=== PATIENT | female | born 1940 | race American Indian/Alaskan Native ===

== ENCOUNTER 2016-09-10 15:55 | Inpatient (IN) | payer MEDICARE ==
[2016-09-10 15:55] VITALS: BMI 29.0
[2016-09-10] MEDS ORDERED: Nitroglycerin 2% Ointment Foilpak UD TOP STA (17:24)
[2016-09-10 17:32] LABS: BASO # 0.1 K/uL (0.0-0.2); EOS # 0.6 K/uL (0.0-0.7); EOS % 9.2 % (0.0-4.0); HEMOGLOBIN 11.4 g/dL (11.0-16.0); LYMPH # 1.1 K/uL (1.0-4.3); LYMPH % 16.2 % (20.0-40.0); MEAN CELL VOLUME 82.7 fL (81.0-99.0); MEAN CORPUSCULAR HEMOGLOBIN 26.7 pg (27.0-31.0); MEAN CORPUSCULAR HGB CONC 32.3 g/dL (33.0-37.0); MEAN PLATELET VOLUME 10.2 fL (7.2-11.7); MONO # 0.5 K/uL (0.0-0.8); NEUT # 4.4 K/uL (1.8-7.0); NEUT % 65.6 % (50.0-75.0); RBC 4.25 Mil/uL (3.80-5.20); RED CELL DISTRIBUTION WIDTH 15.3 % (11.5-14.5); WHITE BLOOD COUNT 6.7 K/uL (4.8-10.8)
[2016-09-10 17:42] LABS: PROTHROMBIN TIME 11.2 SECONDS (9.7-12.2)
[2016-09-10] MEDS ORDERED: Nitroglycerin 2% Ointment Foilpak UD TOP ONE (17:46)
[2016-09-10 17:53] LABS: SQUAMOUS EPITHIAL 2 /hpf (0-5); URINE BILIRUBIN NEGATIVE (NEGATIVE); URINE BLOOD NEGATIVE (NEGATIVE); URINE CLARITY Clear (Clear); URINE COLOR Colorless (YELLOW); URINE GLUCOSE (UA) 1+ mg/dL (Normal); URINE LEUKOCYTE ESTERASE NEG Leu/uL (Negative); URINE NITRATE NEGATIVE (NEGATIVE); URINE PROTEIN NEGATIVE (NEGATIVE); URINE UROBILINOGEN NORMAL mg/dL (0.2-1.0)
[2016-09-10] MEDS: niCARdipine IV 25 MG in Sodium Chloride 0.9% 240 ML IV SCH ×2 (18:22→20:49)
--- NOTE | 2016-09-10 18:26 | CT ---
PROCEDURE: CT HEAD WITHOUT CONTRAST. HISTORY: hypertensive, ? bleed COMPARISON: None available. TECHNIQUE: Axial computed tomography images were obtained through the head/brain without intravenous contrast. Radiation dose: Total exam DLP = 1160.54 mGy-cm. This CT exam was performed using one or more of the following dose reduction techniques: Automated exposure control, adjustment of the mA and/or kV according to patient size, and/or use of iterative reconstruction technique. FINDINGS: HEMORRHAGE: No intracranial hemorrhage. BRAIN: Diffuse atrophy with prominence of the ventricles and sulci noted. No mass effect or edema. Scattered periventricular and subcortical white matter hypodensities, which are nonspecific, but often seen with chronic microvascular ischemic disease. Patchy opacity within the right basal ganglia may reflect ischemic change, age indeterminate.Scattered periventricular and subcortical white matter hypodensities, which are nonspecific, but often seen with chronic microvascular ischemic disease. VENTRICLES: No hydrocephalus. CALVARIUM: Unremarkable. PARANASAL SINUSES: Unremarkable as visualized. No significant inflammatory changes. MASTOID AIR CELLS: Unremarkable as visualized. No inflammatory changes. OTHER FINDINGS: None. IMPRESSION: Generalized atrophy. Nonspecific white matter changes. Patchy opacity within the right basal ganglia may reflect ischemic change, age indeterminate. Please note that MRI with diffusion imaging is more sensitive in the detection of acute ischemic event.
--- NOTE | 2016-09-10 18:32 | RAD ---
HISTORY: adm COMPARISON: Chest x-ray performed 02/15/14 TECHNIQUE: Chest, one view. FINDINGS: Examination limited by habitus. LUNGS: Trace bilateral pleural effusions. Bibasilar atelectasis. No definite pneumothorax. Please note that chest x-ray has limited sensitivity for the detection of pulmonary masses. CARDIOVASCULAR: Cardiomegaly. OSSEOUS STRUCTURES: Degenerative changes of the spine. VISUALIZED UPPER ABDOMEN: Unremarkable. OTHER FINDINGS: None. IMPRESSION: Trace bilateral pleural effusions. Bibasilar atelectasis. Cardiomegaly.
--- NOTE | 2016-09-10 18:53 | C.PDOC ---
History Of Present Illness Nickie Cheema, a 76 year old female, who has a past medical history of diabetes presents to the emergency department complaining of a headache. The patient has poorly controlled blood pressure and is non compliant with her medication. Time Seen by Provider: 09/10/16 17:19 Chief Complaint (Nursing): GI Problem History Per: Patient History/Exam Limitations: no limitations Current Symptoms Are (Timing): Still Present Associated Symptoms: Headache Past Medical History Reviewed: Historical Data, Nursing Documentation, Vital Signs Vital Signs: Last Vital Signs Temp 97.3 F L 09/10/16 16:37 Pulse 54 L 09/10/16 16:37 Resp 18 09/10/16 16:37 BP 169/93 H 09/10/16 21:23 Pulse Ox 96 09/10/16 18:53 - Medical History PMH: Arthritis, Diabetes, HTN, Hypercholesterolemia, Hypothyroidism Denies: Atrial Fibrillation, Cardia Arrhythmia, CHF, Chronic Kidney Disease Family History: States: [place], CAD - Social History Hx Tobacco Use: No Hx Alcohol Use: No Hx Substance Use: No - Immunization History Hx Tetanus Toxoid Vaccination: No Hx Influenza Vaccination: No Hx Pneumococcal Vaccination: No Review Of Systems Except As Marked, All Systems Reviewed And Found Negative. Constitutional: Positive for: Weight loss (positive weight loss in past month) Neurological: Positive for: Headache Physical Exam - Physical Exam Appears: Non-toxic (Obese), No Acute Distress Skin: Normal Color, Warm, Dry Head: Atraumatic, Normacephalic Eye(s): bilateral: Normal Inspection, PERRL, EOMI Ear(s): Bilateral: Normal Nose: Normal Oral Mucosa: Moist Tongue: Normal Appearing Lips: Normal Appearing Teeth: Normal Dentition Gingiva: Normal Appearing Throat: Normal Neck: Normal, Normal ROM, Supple Chest: No Deformity, No Tenderness Cardiovascular: Rhythm Regular Respiratory: Normal Breath Sounds, No Wheezing Gastrointestinal/Abdominal: Normal Exam, Bowel Sounds, Soft, No Tenderness, No Guarding, No Rebound Extremity: Normal ROM, No Tenderness, No Pedal Edema, No Deformity, No Swelling , Other (Mild lower extremity edema.) Neurological/Psych: Oriented x3, Normal Speech, Normal Cognition, Other (Mild headache pain) ED Course And Treatment - Laboratory Results Result Diagrams: 09/10/16 17:27 09/10/16 19:12 Lab Interpretation: Normal (ua neg.) ECG: Interpreted By Me ECG Rhythm: Sinus Rhythm ECG Interpretation: Normal Rate From EC O2 Sat by Pulse Oximetry: 96 (RA) Pulse Ox Interpretation: Normal - Radiology CXR: Interpreted by Me CXR Interpretation: Yes: No Acute Disease Progress Note: agustin mir Reevaluation Time: 18:51 Reassessment Condition: Improved - Physician Consult Information Outcome Of Conversation: 1899: d/w Dr. Wei- PMD, ok to Tele obs. Medical Decision Making Medical Decision Making: uncontrolled HTN, ? poor med compliance, pipere esperanza to control BP, Obs with vomiting due to unable to trial PO meds prior to d/c. Initial Plan: * CT head w/o Contrast * EKG * Comp Metabolic Panel * CMP * Hemoglobin A1C * Lipid Panel * Troponin * CBC * Partial thromboplastin * Prothrombin Time * CXR * Catapres * Lasix 40mg IVP * Nitro-bid 2% 1ea TOP * Reevaluation Scribe Attestation Documented by Sanjuana Garza acting as a scribe fro Adan Ashley MD. Provider Attestation All medical record entries made by the scribe were at my direction and personally dictated by me. I have reviewed the chart and agree that the record accurately reflects my personal performance, history, physical exam, medical decision making, and the department course for this patient. Ihave also personally directed, reviewed, and agree with the discharge instructions and disposition. Disposition Doctor Will See Patient In The: Hospital Counseled Patient/Family Regarding: Studies Performed, Diagnosis - Disposition Disposition: HOSPITALIZED Disposition Time: 18:52 Condition: GOOD - Clinical Impression Clinical Impression: Uncontrolled hypertension, Vomiting
[2016-09-10] MEDS ORDERED: Iohexol 240 (50 ml) ONE (19:15)
[2016-09-10] MEDS ORDERED: Sodium Chloride 0.9% 1,000 ML ONE (19:15)
[2016-09-10 19:33] LABS: ALBUMIN 4.3 g/dL (3.5-5.0)
[2016-09-10 19:36] LABS: ALB/GLOB RATIO 1.1 (1.0-2.1)
[2016-09-10 19:37] LABS: CALCIUM 9.6 mg/dl (8.6-10.4)
[2016-09-10 19:48] LABS: TROPONIN I 0.015 ng/mL (0.00-0.120)
--- NOTE | 2016-09-10 20:46 | CP.PCM.CON ---
History of Present Illness - History of Present Illness History of Present Illness: CCM 76 yo black female with hx HTN /DM /HLD/arthritis/Hypothyroidism setn from PMD b /o not feeling well. Pt ate hamburger at [employer] then 15 min later had nausea and vomiting.+ feels weak and dizzy. Had leg swelling noted today. denied chest pain /sob /fever cough /BELLO /diarrhea /visual change. Found with BP 217/91 in ED and started on Cardene. Pt feeling back to baseline when seen in ED. BP was 119 systolic then re-checked at 167/72.Pt claims her BP is always high. ROS- as noted All- NKDA Social- no tob/ etoh/ drugs Meds- reviewed FH- Unknown PE T- P-72 R-16 Bp-167/72 Perrl Neck- no jvd Lungs- bilat bs hearwt-rr aBd- benign eXt- bilat Leg edema Neuro- motor and sensory intact Labs, EKG ,[id number]-lutiddrv CT Brain- poss. ischemic area of BG, age undetermined A&P Hypertenisve Emergency- improved BRUCE s/p vomiting DM HLD Hypothyroidism Arthritis would give clonidine PO now and taper off drip cont home BP meds cont NTP Rx lasix If pt has ischemic stroke would avoid tight BP control with drip antiemetics PRN Ok for Telemetry if off Cardene f/u renal fx ECHO d/w ED staff re-consult prn Past Patient History - Infectious Disease Hx of Infectious Diseases: None - Tetanus Immunizations Tetanus Immunization: Refused - Past Medical History & Family History Past Medical History?: Yes - Past Social History Smoking Status: Former Smoker - CARDIAC Hx Atrial Fibrillation: No Hx Cardia Arrhythmia: No Hx Congestive Heart Failure: No Hx Hypercholesterolemia: Yes Hx Hypertension: Yes - PULMONARY Hx Respiratory Disorders: No - NEUROLOGICAL Hx Neurological Disorder: No - HEENT Hx HEENT Problems: No - RENAL Hx Chronic Kidney Disease: No - ENDOCRINE/METABOLIC Hx Hypothyroidism: Yes - HEMATOLOGICAL/ONCOLOGICAL Hx Blood Disorders: No - INTEGUMENTARY Hx Dermatological Problems: No - MUSCULOSKELETAL/RHEUMATOLOGICAL Hx Arthritis: Yes - GASTROINTESTINAL Hx Gastrointestinal Disorders: No - GENITOURINARY/GYNECOLOGICAL Hx Genitourinary Disorders: No - PSYCHIATRIC Hx Substance Use: No - SURGICAL HISTORY Hx Surgeries: Yes (thyroid surgery) - ANESTHESIA Hx Anesthesia: Yes Hx Anesthesia Reactions: No Meds Allergies/Adverse Reactions: Allergies Allergy/AdvReac Type Severity Reaction Status Date / Time No Known Allergies Allergy Verified 07/22/15 12:59 - Medications Medications: Current Medications Nicardipine HCl 25 mg/ Sodium (Chloride) 250 mls @ 50 mls/hr IV .Q5H GABY; 5 MG/ HR PRN Reason: Protocol Last Admin: 09/10/16 18:22 Dose: 50 mls/hr Results - Vital Signs Recent Vital Signs: Last Vital Signs Temp 97.3 F L 09/10/16 16:37 Pulse 54 L 09/10/16 16:37 Resp 18 09/10/16 16:37 BP 217/91 H 09/10/16 18:23 Pulse Ox 96 09/10/16 18:53 - Labs Result Diagrams: 09/10/16 17:27 09/10/16 19:12 Labs: Laboratory Results - last 24 hr 09/10/16 19:12 Sodium 144 Potassium 4.1 Chloride 99 Carbon Dioxide 31 H Anion Gap 18 BUN 31 H Creatinine 1.6 H Est GFR ( Amer) 38 Est GFR (Non-Af Amer) 32 Random Glucose 125 H Calcium 9.6 Total Bilirubin 0.9 AST 19 ALT 28 Alkaline Phosphatase 131 H D Troponin I 0.0150 Total Protein 8.0 Albumin 4.3 Globulin 3.7 Albumin/Globulin Ratio 1.1 Triglycerides 103 D Cholesterol 212 H LDL Cholesterol Direct 104 HDL Cholesterol 61 Assessment & Plan (1) Hypertensive emergency Status: Acute (2) Acute on chronic renal insufficiency Status: Acute (3) Vomiting Status: Acute (4) Hypothyroidism Status: Acute (5) Diabetes Status: Chronic
--- NOTE | 2016-09-10 21:27 | CP.PCM.HP ---
History of Present Illness - History of Present Illness History of Present Illness: 76 y.o. Lady with PMH NIDDM Hypertension Hyperuricemia Cholesterolnemia CRI DJD brought to ER due to acute episode of vomiting-few hours- she reports after eating burger,= in ER patient's BP was very high-has bipedal edema and patient was given medication and was admitted for further evaluation and management ROS no cough no SOB no fever no abdominal pain no diarrhea no urinary complaints Meds -see listing NKDA no surgery history of hospitalization for severe pain DJD Acute Gouty attack Present on Admission - Present on Admission Any Indicators Present on Admission: Yes History of DVT/PE: No History of Uncontrolled Diabetes: Yes Urinary Catheter: No Decubitus Ulcer Present: No Review of Systems - Constitutional Constitutional: Weakness. absent: Chills, Fever - EENT Eyes: absent: Change in Vision, Loss of Vision Ears: absent: Ear Pain Nose/Mouth/Throat: absent: Nasal Congestion, Sinus Pain, Dysphagia - Breasts Breasts: absent: Pain - Cardiovascular Cardiovascular: Pedal Edema. absent: Chest Pain, Dyspnea, Dyspnea on Exertion - Respiratory Respiratory: absent: Cough, Hemoptysis, Wheezing - Gastrointestinal Gastrointestinal: Vomiting. absent: Abdominal Pain, Constipation, Diarrhea, Melena - Genitourinary Genitourinary: absent: Difficulty Urinating, Dysuria, Flank Pain - Musculoskeletal Musculoskeletal: Arthralgias. absent: Abnormal Gait, Back Pain, Numbness - Integumentary Integumentary: absent: Lesions - Neurological Neurological: absent: Abnormal Hearing, Abnormal Movements, Abnormal Speech, Behavioral Changes, Convulsions, Focal Weakness, Paresthesias, Syncope - Psychiatric Psychiatric: absent: Behavioral Changes, Confusion, Depression, Mood Swings - Endocrine Endocrine: absent: Polydipsia, Polyphagia, Polyuria - Hematologic/Lymphatic Hematologic: absent: Easy Bleeding, Easy Bruising Past Patient History - Infectious Disease Hx of Infectious Diseases: None - Tetanus Immunizations Tetanus Immunization: Refused - Past Medical History & Family History Past Medical History?: Yes - Past Social History Smoking Status: Former Smoker - CARDIAC Hx Atrial Fibrillation: No Hx Cardia Arrhythmia: No Hx Congestive Heart Failure: No Hx Hypercholesterolemia: Yes Hx Hypertension: Yes - PULMONARY Hx Respiratory Disorders: No - NEUROLOGICAL Hx Neurological Disorder: No - HEENT Hx HEENT Problems: No - RENAL Hx Chronic Kidney Disease: No - ENDOCRINE/METABOLIC Hx Hypothyroidism: Yes - HEMATOLOGICAL/ONCOLOGICAL Hx Blood Disorders: No - INTEGUMENTARY Hx Dermatological Problems: No - MUSCULOSKELETAL/RHEUMATOLOGICAL Hx Arthritis: Yes - GASTROINTESTINAL Hx Gastrointestinal Disorders: No - GENITOURINARY/GYNECOLOGICAL Hx Genitourinary Disorders: No - PSYCHIATRIC Hx Substance Use: No - SURGICAL HISTORY Hx Surgeries: Yes (thyroid surgery) - ANESTHESIA Hx Anesthesia: Yes Hx Anesthesia Reactions: No Meds Allergies/Adverse Reactions: Allergies Allergy/AdvReac Type Severity Reaction Status Date / Time No Known Allergies Allergy Verified 07/22/15 12:59 Physical Exam - Constitutional Appears: Non-toxic - Head Exam Head Exam: ATRAUMATIC, NORMOCEPHALIC - Eye Exam Eye Exam: Normal appearance. absent: Nystagmus, Periorbital swelling - ENT Exam ENT Exam: Mucous Membranes Moist - Neck Exam Neck exam: Positive for: Full Rom - Respiratory Exam Respiratory Exam: Clear to Auscultation Bilateral, NORMAL BREATHING PATTERN. absent: Rales, Wheezes, Respiratory Distress - Cardiovascular Exam Cardiovascular Exam: REGULAR RHYTHM - GI/Abdominal Exam GI & Abdominal Exam: Normal Bowel Sounds, Soft. absent: Distended, Tenderness - Extremities Exam Extremities exam: Positive for: pedal edema (had edema earlier - improved after lasix ) - Back Exam Back exam: absent: tenderness, vertebral tenderness - Neurological Exam Neurological exam: Alert, Normal Gait, Oriented x3, Reflexes Normal - Psychiatric Exam Psychiatric exam: Normal Affect, Normal Mood - Skin Skin Exam: Intact, Normal Color, Warm Results - Vital Signs Recent Vital Signs: Last Vital Signs Temp 97.3 F L 09/10/16 16:37 Pulse 54 L 09/10/16 16:37 Resp 18 09/10/16 16:37 BP 169/93 H 09/10/16 21:23 Pulse Ox 96 09/10/16 18:53 - Labs Result Diagrams: 09/10/16 17:27 09/11/16 04:17 Labs: Laboratory Results - last 24 hr 09/10/16 19:12 Sodium 144 Potassium 4.1 Chloride 99 Carbon Dioxide 31 H Anion Gap 18 BUN 31 H Creatinine 1.6 H Est GFR ( Amer) 38 Est GFR (Non-Af Amer) 32 Random Glucose 125 H Calcium 9.6 Total Bilirubin 0.9 AST 19 ALT 28 Alkaline Phosphatase 131 H D Troponin I 0.0150 Total Protein 8.0 Albumin 4.3 Globulin 3.7 Albumin/Globulin Ratio 1.1 Triglycerides 103 D Cholesterol 212 H LDL Cholesterol Direct 104 HDL Cholesterol 61 Assessment & Plan - Assessment and Plan (Free Text) Assessment: Patient with PMH- admitted for acute episode of vomiting with no abdominal pain no diarrhea ,possibly from severe hypertensionfliud retention/bipedal edema Severe Hypertension,bipedal edema ICU evaluation/telemetry closer monitoring, , CT head , 2 d echo , cardiac evaluation rule outCHF, PAULO Vomiting control folow up CY head GI prophylaxis DVT prophylaxis but will hold for now- until CT head clarified Abnormal CT -CVA old ? currently patient has no neurological deficit Neuro consult CRI- monitor NIDDM- with good level sugar- accuchecks with no insulin coverage for now, is vomiting, hold DM medication, NPO temporarily - Date & Time Date: 09/10/16
[2016-09-11 04:27] LABS: ALBUMIN 3.9 g/dL (3.5-5.0)
[2016-09-11 04:30] LABS: ALB/GLOB RATIO 1.1 (1.0-2.1)
[2016-09-11 04:31] LABS: CALCIUM 9.3 mg/dl (8.6-10.4)
[2016-09-11 04:40] LABS: CK-MB 4.31 ng/mL (0.0-3.38)
[2016-09-11 05:37] LABS: FOLATE 12.5 ng/mL
[2016-09-11 07:00] LABS: HDL CHOLESTEROL 58 mg/dL (30-70)
[2016-09-11 07:11] LABS: LDL CHOLESTEROL 106 mg/dL (0-129)
[2016-09-11 07:16] LABS: FREE T4 1.1 ng/dL (0.78-2.19)
[2016-09-11] MEDS ORDERED: Pantoprazole 40 mg EC Tab PO SCH (10:00)
[2016-09-11] MEDS ORDERED: Enoxaparin 30 mg Syringe SC SCH (10:00)
--- NOTE | 2016-09-11 10:04 | CP.PCM.PN ---
Subjective - Date & Time of Evaluation Date of Evaluation: 09/11/16 Time of Evaluation: 07:00 - Subjective Subjective: Report from floor-no more vomiting, discuss diet tests going on was seen by Neuro Discussionwith daughter patient seen- has no complaints, no more vomiting tolerated food good BM Objective - Vital Signs/Intake and Output Vital Signs (last 24 hours): Temp Pulse Resp BP Pulse Ox 98.1 F 60 18 195/82 H 99 09/11/16 07:15 09/11/16 07:15 09/11/16 07:15 09/11/16 07:15 09/11/16 07:15 Intake and Output: 09/11/16 09/11/16 06:59 18:59 Intake Total 10 Balance 10 - Medications Medications: Current Medications Allopurinol (Zyloprim) 100 mg PO BID GABY Amlodipine Besylate (Norvasc) 10 mg PO DAILY GABY Aspirin (Ecotrin) 81 mg PO DAILY GABY Losartan Potassium (Cozaar) 100 mg PO DAILY GABY Pantoprazole Sodium (Protonix Ec Tab) 40 mg PO DAILY GBAY - Labs Labs: 09/11/16 04:17 PT 11.2 SECONDS (9.7-12.2) 09/10/16 17:27 INR 1.0 09/10/16 17:27 APTT 35 SECONDS (21-34) H 09/10/16 17:27 - Constitutional Appears: Non-toxic, No Acute Distress - Head Exam Head Exam: ATRAUMATIC, NORMOCEPHALIC - Eye Exam Eye Exam: Normal appearance. absent: Nystagmus - ENT Exam ENT Exam: Mucous Membranes Moist - Neck Exam Neck Exam: Full ROM. absent: Meningismus - Respiratory Exam Respiratory Exam: Clear to Ausculation Bilateral, NORMAL BREATHING PATTERN - Cardiovascular Exam Cardiovascular Exam: REGULAR RHYTHM - GI/Abdominal Exam GI & Abdominal Exam: Soft, Normal Bowel Sounds. absent: Tenderness - Extremities Exam Extremities Exam: Full ROM, Pedal Edema (improved ) - Back Exam Back Exam: absent: tenderness - Neurological Exam Neurological Exam: Alert, Awake, Normal Gait (except for the effect of arthritis on the knee ), Oriented x3 - Psychiatric Exam Psychiatric exam: Normal Affect, Normal Mood - Skin Skin Exam: Intact, Normal Color Assessment and Plan - Assessment and Plan (Free Text) Assessment: Patient with multiple medical problem admitted for acute vomiting- could be food reaction and uncontrolled hypertension, currently resolved Uncontrolled Hypertension-with no chest pain- adjusting medication diet education Ct head with infarct chronic- on plavix, aspirin- evaluation with neuro DM- off meds due to episode of vomiting and current AIC is 5.9 fluid overload- on lasix - 2d echo pending - cardio on case CRI- stable- has been seeing a campus recruiting coordinator Multiple DJD- no acute symptoms Hyperuricemia- on allopurinol with no attack stable
[2016-09-11 11:41] LABS: CK-MB 3.6 ng/mL (0.0-3.38)
--- NOTE | 2016-09-11 12:36 | CARD ---
APPROVED REPORT EKG Measurement Heart [id number] <Conclusion> Normal sinus rhythm with APCs, some of them are blocked. Minimal voltage criteria for LVH, may be normal variant Abnormal ECG
--- NOTE | 2016-09-11 13:38 | MRI ---
PROCEDURE: MRI BRAIN WITHOUT CONTRAST HISTORY: stroke rt thalamic COMPARISON: Prior head CT 09/10/2016 unenhanced. TECHNIQUE: Multiplanar, multisequence MR images of the brain were obtained without intravenous contrast enhancement. FINDINGS: HEMORRHAGE: None DWI: No evidence of an acute or early subacute infarction including the bilateral basal ganglia. . BRAIN PARENCHYMA: Multifocal subcortical, periventricular and centrum semiovale white matter changes are identified throughout the cerebrum compatible with chronic microangiopathy. There is also [id number] diffuse cerebral atrophy identified once again. No suspicious extra-axial fluid collections identified and the midline brain and appears grossly unremarkable. Chronic lacune or infarcts are identified and the bilateral basal ganglia and right internal capsule or lateral portion the right thalamus. There is no lobar brain infarction appreciated throughout. White matter changes in the ever reflect additional chronic microangiopathy. Posterior fossa is otherwise unremarkable appearing. VENTRICLES: Unremarkable. No hydrocephalus. CRANIUM: Unremarkable. ORBITS: Grossly unremarkable. PARANASAL SINUSES/MASTOIDS: Clear VASCULAR SYSTEM: Skull base flow voids intact. OTHER FINDINGS: None. IMPRESSION: No acute intracranial findings including brain infarction. Age related neuro degenerate changes are reiterated in this examination. Chronic lacunar infarcts in the right greater than left basal ganglia as well as right internal capsule/right thalamus.
[2016-09-11] MEDS: Levothyroxine 75 MCG TAB PO SCH (18:15)
--- NOTE | 2016-09-11 19:52 | CARD ---
APPROVED REPORT EXAM: Two-dimensional and M-mode echocardiogram with Doppler and color Doppler. Other Information Quality : GoodRhythm : INDICATION Chest Pain RISK FACTORS Hypertension Hyperlipidemia Diabetes M-Mode DIMENSIONS RVDd0.83 (2.1-3.2cm)Left Atrium (MM)4.23 (2.5-4.0cm) IVSd1.42 (0.7-1.1cm)Aortic Root3.16 (2.2-3.7cm) LVDd5.17 (4.0-5.6cm)Aortic Cusp Exc.1.46 (1.5-2.0cm) PWd1.42 (0.7-1.1cm)FS (%) 44 % LVDs2.92 (2.0-3.8cm)LVEF (%)74 (>50%) Mitral Valve MV E Zuurilmj55.6cm/sMV A Ydyjecvv642.1cm/sE/A ratio0.6 TDI E/Lateral E'0.0E/Medial E'0.0 Tricuspid Valve TR Peak [id number]/sTR Peak Gr.[id number] LEFT VENTRICLE The left ventricle is normal size. There is mild to moderate concentric left ventricular hypertrophy. Left ventricle systolic function is normal. The Ejection Fraction is 65-70%. There is normal LV segmental wall motion. Transmitral Doppler flow pattern is Grade I-abnormal relaxation pattern. There is no ventricular septal defect visualized. RIGHT VENTRICLE The right ventricle is normal size. The right ventricular systolic function is normal. ATRIA The left atrium is mildly dilated. The right atrium size is normal. AORTIC VALVE The aortic valve is mildly sclerotic. The aortic valve is tri-cuspid. No aortic regurgitation is present. There is no aortic valvular stenosis. MITRAL VALVE Mitral annular calcification is borderline. There is no evidence of mitral valve prolapse. There is no mitral valve regurgitation noted. TRICUSPID VALVE The tricuspid valve is normal in structure. There is trace to mild tricuspid regurgitation. Right ventricular systolic pressure is estimated at 40-50 mmHg. There is mild-moderate pulmonary hypertension. PULMONIC VALVE The pulmonic valve is not well visualized. There is trace pulmonic valvular regurgitation. GREAT VESSELS The IVC is normal in size and collapses >50% with inspiration. PERICARDIAL EFFUSION There is no pericardial effusion. <Conclusion> There is mild to moderate concentric left ventricular hypertrophy. Left ventricle systolic function is normal. The Ejection Fraction is 65-70%. Transmitral Doppler flow pattern is Grade I-abnormal relaxation pattern. There is mild-moderate pulmonary hypertension.
[2016-09-11 20:13] LABS: CK-MB 5.05 ng/mL (0.0-3.38)
--- NOTE | 2016-09-12 03:37 | CON ---
DATE OF EVALUATION: 09/11/2016 TIME OF EVALUATION: 07:10 a.m. REASON FOR CONSULTATION: Abnormal CAT scan findings. CHIEF COMPLAINT: The patient was brought into [facility] with history of high blood pressure and nausea with vomiting. These are all related to her food which she has taken in the burger shop outside. At the emergency room, the patient did have a CT of the head that showed some lucency in the thalamic region. From neurologic point of view, I was called in to evaluate her for further management. HISTORY OF PRESENT ILLNESS: Ms. Nickie Cheema is a 76-year-old right-handed, well built, female presenting with vomiting episode following eating food is the restaurant. No history of dizziness, no history of losing balance associated with this problem, no history of headache, no history of involuntary movements. No similar episodes happened in the past. PAST MEDICAL HISTORY: Dyslipidemia, gouty arthritis, hypertension and hypothyroidism. PERSONAL HISTORY: Denies smoking or alcohol use. REVIEW OF SYSTEMS: A 12 systems have been reviewed and agreed with documentation, except CAT scan finding, which is abnormal suggestive of small vessel disease. PHYSICAL EXAMINATION: VITAL SIGNS: Blood pressure 189/90 with mean arterial pressure of 123, respiratory rate 16, temperature afebrile. NECK: Supple. No carotid bruits. HEART: Sounds are regular. CHEST: Fair air entry. EXTREMITIES: No edema in legs. NEUROLOGICAL: Mental status examination: She is awake, alert, oriented to person, place, and time. Speech is clear. Naming, repetition, fluency, and comprehension all within normal. CRANIAL NERVE EXAMINATION: Visual field intact. Pupils reactive to light. Extraocular movements normal. No nystagmus. No facial or sensory deficit. No facial asymmetry. Hearing is normal. Tongue is midline. Good gag. Motor examination: Outstretched hand with eyes closed. No drift noted. Power is symmetric on either side. Deep tendon reflexes: Biceps, brachialis, and triceps are 1+. Both knees are absent, both ankles are absent. Plantars are equivocal response. Coordination of [id number] test is intact. Gait; somewhat slow, short-step gait. No Romberg sign. CONCLUSION: 1. Ms. Nickie Cheema has been presenting with no clear evidence of long tract sign suggestive of central nervous system dysfunction. However, the current examination showed mild distal sensorimotor neuropathy. 2. The patient also suffering from hypertension, which is not under control. 3. Dyslipidemia and peripheral neuropathy. DIAGNOSTIC WORKUP: CT of the head reviewed by me, there is a lucency in the right thalamic region, which is a old. EKG normal sinus rhythm. LABORATORY DATA: Blood workup: WBC 6.7, hemoglobin 11.4, hematocrit 35.1, platelet 178. PT 11.2, INR 1.0, PTT 35. Glucose 144, potassium 4.1, chloride 99, bicarbonate 31, creatinine 1.6, glucose 125, hemoglobin A1C 5.8, cholesterol 212, triglycerides 103, and HDL 61. RECOMMENDATIONS: 1. MRI of the brain should be done to rule out further localizing ischemic problem. 2. Carotid Doppler and echocardiogram should be done. 3. The patient should be on antiplatelets with statin and SHAD inhibitors/ARB. When medically stable, the patient should be discharged and should have polysomnogram, this can be done as out patient to study any acute and sleep-related breathing disorder that could be in co-finding risk factors to significant problem. Shaquille Dempsey MD [facility]
[2016-09-12] MEDS: Levothyroxine 75 MCG TAB PO SCH (06:14)
--- NOTE | 2016-09-12 08:41 | PN ---
DATE: 09/12/2016 TIME OF EVALUATION: 07:10 a.m. NEUROLOGIC PROBLEM: Abnormal CAT scan, possible stroke. PHYSICAL EXAMINATION: VITAL SIGNS: Blood pressure 192/84, mean arterial pressure of 120, respiratory rate 16, temperature 98.2, pulse rate 54 regular. The patient is more awake, alert, oriented to person, place and time. Speech is clear. SENSORY MOTOR EXAMINATION: Speech is unchanged compared with my previous examination. Deep tendon reflexes are intact. antalgic gait is related to his back problem. Workup MRI of the brain being reviewed showed periventricular ischemic changes, thalamic and internal capsule seen on the right side. These are old. These all related to uncontrolled blood pressure related small vessel disease. The recent blood workup also showed slightly elevated glucose level. The patient maybe prediabetic. The patient should control blood pressure and sugars would be controlled being discussed with the patient. The patient is on antiplatelet, statin and angiotensin receptor blockers. Blood pressure should be maintained to keep mean artery pressure around 100. The patient can be benefited of doing polysomnogram to rule out any sleep related breathing disorder which maybe the co-finding risk factors for her both problems. The patient's condition is being discussed. The patient will be scheduled as outpatient polysomnogram. The patient can be signed off from neurological followup if needed. If need further intervention please let me know. Shaquille Dempsey MD [facility]
--- NOTE | 2016-09-12 15:28 | VASCLAB ---
PROCEDURE: HISTORY: stroke COMPARISON: None available. TECHNIQUE: Grayscale and duplex Doppler evaluation of the cervical carotid and vertebral arteries were performed. The common carotid, carotid bifurcations and cervical Internal Carotid Artery (ICA) and proximal External Carotid Artery (ECA) were evaluated. The vertebral arteries were evaluated for gross patency and flow direction. Report prepared by Fabrice Phoenix, BS, RVT FINDINGS: RIGHT CAROTID ARTERIES: 1. Common Carotid Artery: No significant focal plaque formation of the right common carotid artery. Maximum Peak Systolic velocity: 55 cm/sec: End-diastolic velocity 10 cm/sec. 2. Carotid Bifurcation: Homogeneous plaque formation. Maximum Peak Systolic velocity: 60 cm/sec: End-diastolic velocity 13 cm/sec. 3. Internal Carotid Artery: Mild heterogeneous plaque. 3.1. Proximal Segment: Peak systolic velocity 53 cm/sec: End-diastolic velocity 12 cm/sec - % stenosis 0-15% 3.2. Middle Segment: Peak systolic velocity 60 cm/sec: End-diastolic velocity 20 cm/sec - % stenosis 0-15% 3.3. Distal Segment: Peak systolic velocity 37 cm/sec: End-diastolic velocity 14 cm/sec - % stenosis 0-15% 4. External Carotid Artery: No significant focal plaque formation. Peak systolic velocity 95 cm/sec 5. ICA/CCA Ratio: 1.1 LEFT CAROTID ARTERIES: 1. Common Carotid Artery: No significant focal plaque formation of the left common carotid artery. Maximum Peak Systolic velocity: 62 cm/sec: End-diastolic velocity 14 cm/sec. 2. Carotid Bifurcation: Homogeneous plaque formation. Maximum Peak Systolic velocity: 59 cm/sec: End-diastolic velocity 9 cm/sec. 3. Internal Carotid Artery: Mild heterogeneous plaque. 3.1. Proximal Segment: Peak systolic velocity 63 cm/sec: End-diastolic velocity 19 cm/sec - % stenosis 0-15% 3.2. Middle Segment: Peak systolic velocity 72 cm/sec: End-diastolic velocity 22 cm/sec - % stenosis 0-15% 3.3. Distal Segment: Peak systolic velocity 58 cm/sec: End-diastolic velocity 18 cm/sec - % stenosis 0-15% 4. External Carotid Artery: Extensive heterogeneous plaque formation. Peak systolic velocity 60 cm/sec 5. ICA/CCA Ratio: 1.2 VERTEBRAL ARTERIES: 1. Right Vertebral Artery: The right vertebral artery flow direction is antegrade. 2. Left Vertebral Artery: The left vertebral artery flow direction is antegrade. OTHER FINDINGS: 1. Right Brachial Blood pressure: 210 mmHg. 2. Left Brachial Blood pressure: 200 mmHg. 3. Heterogeneous thyroid gland with possible nodules. IMPRESSION: RIGHT: Duplex scan does not suggest hemodynamically significant stenosis of the right extracranial carotid arteries. LEFT: Duplex scan does not suggest hemodynamically significant stenosis of the left extracranial carotid arteries. Heterogeneous thyroid gland with possible nodules. Dedicated ultrasound recommended.
[2016-09-12] MEDS ORDERED: Levothyroxine 75 MCG TAB PO SCH (16:37)
--- NOTE | 2016-09-12 22:02 | CP.PCM.PN ---
Subjective - Date & Time of Evaluation Date of Evaluation: 09/12/16 Time of Evaluation: 08:30 - Subjective Subjective: patient seen stable no complaint. looking forward to go home, BP getting better and asymptomatic was seen by cardio- discussion on meds Objective - Vital Signs/Intake and Output Vital Signs (last 24 hours): Temp Pulse Resp BP Pulse Ox 97.6 F 54 L 18 159/83 H 97 09/12/16 15:35 09/12/16 15:35 09/12/16 15:35 09/12/16 18:46 09/12/16 15:35 Intake and Output: 09/12/16 09/13/16 18:59 06:59 Intake Total 480 Balance 480 - Medications Medications: Current Medications Allopurinol (Zyloprim) 100 mg PO BID [facility] Last Admin: 09/12/16 18:45 Dose: 100 mg Amlodipine Besylate (Norvasc) 10 mg PO DAILY [facility] Last Admin: 09/12/16 09:38 Dose: 10 mg Aspirin (Ecotrin) 81 mg PO DAILY [facility] Last Admin: 09/12/16 09:38 Dose: 81 mg Carvedilol (Coreg) 12.5 mg PO BID [facility] Last Admin: 09/12/16 18:46 Dose: 12.5 mg Clonidine HCl (Catapres) 0.1 mg PO TID [facility] Last Admin: 09/12/16 18:46 Dose: 0.1 mg Clopidogrel Bisulfate (Plavix) 75 mg PO DAILY [facility] Last Admin: 09/12/16 09:38 Dose: 75 mg Famotidine (Pepcid) 20 mg PO DAILY [facility] Last Admin: 09/12/16 09:38 Dose: 20 mg Hydralazine HCl (Apresoline) 25 mg PO TID [facility] Last Admin: 09/12/16 18:46 Dose: 25 mg Levothyroxine Sodium (Synthroid) 75 mcg PO DAILY@0630 [facility] Last Admin: 09/12/16 06:14 Dose: 75 mcg Losartan Potassium (Cozaar) 100 mg PO DAILY [facility] Last Admin: 09/12/16 09:43 Dose: 100 mg Rosuvastatin Calcium (Crestor) 10 mg PO HS [facility] Last Admin: 09/11/16 21:43 Dose: 10 mg - Labs Labs: PT 11.2 SECONDS (9.7-12.2) 09/10/16 17:27 INR 1.0 09/10/16 17:27 APTT 35 SECONDS (21-34) H 09/10/16 17:27 - Constitutional Appears: Well, No Acute Distress - Head Exam Head Exam: ATRAUMATIC, NORMOCEPHALIC - Eye Exam Eye Exam: Normal appearance. absent: Nystagmus - ENT Exam ENT Exam: Mucous Membranes Moist - Neck Exam Neck Exam: Full ROM. absent: Tenderness - Respiratory Exam Respiratory Exam: Clear to Ausculation Bilateral, NORMAL BREATHING PATTERN - Cardiovascular Exam Cardiovascular Exam: REGULAR RHYTHM - GI/Abdominal Exam GI & Abdominal Exam: Soft, Normal Bowel Sounds. absent: Tenderness - Extremities Exam Extremities Exam: absent: Pedal Edema (edema resolved) - Back Exam Back Exam: absent: tenderness - Neurological Exam Neurological Exam: Alert, Awake, Normal Gait, Oriented x3 - Psychiatric Exam Psychiatric exam: Normal Affect, Normal Mood - Skin Skin Exam: Normal Color. 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
--- NOTE | 2016-09-12 22:21 | CON ---
CARDIOLOGY CONSULTATION DATE: 09/12/2016 REQUESTING PHYSICIAN: Leonor Wei MD HISTORY OF PRESENT ILLNESS: This is a 76-year-old -Wel[place] female who was brought in with a history of dizziness, palpitation, shortness of breath. Patient has a longstanding history of hypertension. At home, she was being maintained on the Lopressor and clonidine. To my knowledge, she was probably on metformin. She is also on Coreg and losartan. CURRENT MEDICATIONS: Include Norvasc 10 mg one a day, baby aspirin one a day, Crestor 10 mg, Cozaar 100 mg, Coreg 12.5 mg twice a day. She was on clonidine, but it was changed to hydralazine this morning. PERSONAL HISTORY: Does not smoke, does not drink. ALLERGIES: DENIED. FAMILY HISTORY: Mother with diabetes, hypertension, and chronic kidney disease. PAST MEDICAL HISTORY: History of thyroid surgery many years ago. Admitted in the [facility] about 2-3 years ago with atypical chest pains. Her echocardiogram has been unremarkable. Her LV function has been normal. REVIEW OF SYSTEMS: Generalized weakness is noted. No fever. No chills. No visual disturbances. No cough. No hemoptysis. Denies any exertional chest pain, but does have shortness of breath. No edema. No documented [place]. No hematemesis. No melena. No TIA. No CVA. No history of depression. PHYSICAL EXAMINATION: GENERAL: Shows elderly female who is conscious alert, well-oriented in no distress. VITAL SIGNS: Height 6 feet and 1 inch, weighs 200 pounds. Her blood pressure is still 200/105, heart rate of 60 and regular, respiratory rate of 20, afebrile. Telemetry shows sinus rhythm. O2 saturation is 100% on room air. HEENT: Head is normocephalic. Eyes, no pallor, no icterus. NECK: Supple. LUNGS: Clear. CARDIAC: Exam showed S1, S2 to be normal with a prominent S4 gallop. ABDOMEN: Soft and nontender. EXTREMITIES: No cyanosis, clubbing or edema. Distal pulses are intact. NEUROLOGIC: Awake, alert, oriented x3. No focal signs. LABORATORY DATA: CBC, Chem-7 are acceptable except creatinine of 1.5. She is euthyroid. Hemoglobin A1c is 5.9. Troponins are negative. B12 is normal. Total cholesterol is 192, HDL is 58, LDL is 106. ASSESSMENT: This is a 76-year-old female with uncontrolled hypertension. Patient had an MRI done yesterday. PLAN: At this point, we will continue hydralazine and we will increase the dose from 10 mg q.i.d. to 25 mg three times a day. I thank you . We will follow. Paulino Lubin MD
[2016-09-13] MEDS: Levothyroxine 75 MCG TAB PO SCH (06:00)
--- NOTE | 2016-09-13 12:04 | CP.PCM.PN ---
Subjective - Date & Time of Evaluation Date of Evaluation: 09/13/16 Time of Evaluation: 12:02 - Subjective Subjective: weak.bp still high Objective - Vital Signs/Intake and Output Vital Signs (last 24 hours): Temp Pulse Resp BP Pulse Ox 97.5 F L 58 L 20 190/91 H 99 09/13/16 07:10 09/13/16 07:10 09/13/16 07:10 09/13/16 10:26 09/13/16 07:10 Intake and Output: 09/13/16 09/13/16 06:59 18:59 Intake Total 120 Balance 120 - Medications Medications: Current Medications Allopurinol (Zyloprim) 100 mg PO BID [facility] Last Admin: 09/13/16 10:23 Dose: 100 mg Amlodipine Besylate (Norvasc) 10 mg PO DAILY [facility] Last Admin: 09/13/16 10:24 Dose: 10 mg Aspirin (Ecotrin) 81 mg PO DAILY [facility] Last Admin: 09/13/16 10:24 Dose: 81 mg Carvedilol (Coreg) 12.5 mg PO BID [facility] Last Admin: 09/13/16 10:26 Dose: 12.5 mg Clonidine HCl (Catapres) 0.1 mg PO TID [facility] Last Admin: 09/13/16 10:23 Dose: 0.1 mg Clopidogrel Bisulfate (Plavix) 75 mg PO DAILY [facility] Last Admin: 09/13/16 10:23 Dose: 75 mg Famotidine (Pepcid) 20 mg PO DAILY [facility] Last Admin: 09/13/16 10:24 Dose: 20 mg Heparin Sodium (Porcine) (Heparin) 5,000 units SC Q12 [facility] Hydralazine HCl (Apresoline) 25 mg PO TID [facility] Last Admin: 09/13/16 10:23 Dose: 25 mg Levothyroxine Sodium (Synthroid) 75 mcg PO DAILY@0630 [facility] Last Admin: 09/13/16 06:00 Dose: 75 mcg Losartan Potassium (Cozaar) 100 mg PO DAILY [facility] Last Admin: 09/13/16 10:23 Dose: 100 mg Rosuvastatin Calcium (Crestor) 10 mg PO HS [facility] Last Admin: 09/12/16 22:01 Dose: 10 mg - Labs Labs: PT 11.2 SECONDS (9.7-12.2) 09/10/16 17:27 INR 1.0 09/10/16 17:27 APTT 35 SECONDS (21-34) H 09/10/16 17:27 - Constitutional Appears: No Acute Distress - Eye Exam Eye Exam: Normal appearance - ENT Exam ENT Exam: Mucous Membranes Moist - Respiratory Exam Respiratory Exam: Clear to Ausculation Bilateral - Cardiovascular Exam Cardiovascular Exam: REGULAR RHYTHM - GI/Abdominal Exam GI & Abdominal Exam: Soft - Extremities Exam Extremities Exam: absent: Pedal Edema - Neurological Exam Neurological Exam: Alert, Oriented x3 Assessment and Plan - Assessment and Plan (Free Text) Assessment: uncontrolled bp.will ct same dose of hydralazine for another 24 to 48 hrs before incresing the dose.
--- NOTE | 2016-09-13 14:07 | CP.PCM.PN ---
Subjective - Date & Time of Evaluation Date of Evaluation: 09/13/16 Time of Evaluation: 00:00 - Subjective Subjective: patient seen- BP came up agin and became bradycardic- was seen by cardologist and gave recommendations patient seen- discussion and understand situation currently no complaints Objective - Vital Signs/Intake and Output Vital Signs (last 24 hours): Temp Pulse Resp BP Pulse Ox 97.9 F 61 18 172/85 H 98 09/13/16 12:43 09/13/16 12:43 09/13/16 12:43 09/13/16 12:43 09/13/16 12:43 Intake and Output: 09/13/16 09/13/16 06:59 18:59 Intake Total 120 Balance 120 - Medications Medications: Current Medications Allopurinol (Zyloprim) 100 mg PO BID [facility] Last Admin: 09/13/16 10:23 Dose: 100 mg Amlodipine Besylate (Norvasc) 10 mg PO DAILY [facility] Last Admin: 09/13/16 10:24 Dose: 10 mg Aspirin (Ecotrin) 81 mg PO DAILY [facility] Last Admin: 09/13/16 10:24 Dose: 81 mg Carvedilol (Coreg) 12.5 mg PO BID [facility] Last Admin: 09/13/16 10:26 Dose: 12.5 mg Clonidine HCl (Catapres) 0.1 mg PO TID [facility] Last Admin: 09/13/16 13:26 Dose: 0.1 mg Clopidogrel Bisulfate (Plavix) 75 mg PO DAILY [facility] Last Admin: 09/13/16 10:23 Dose: 75 mg Famotidine (Pepcid) 20 mg PO DAILY [facility] Last Admin: 09/13/16 10:24 Dose: 20 mg Heparin Sodium (Porcine) (Heparin) 5,000 units SC Q12 [facility] Hydralazine HCl (Apresoline) 25 mg PO TID [facility] Last Admin: 09/13/16 13:26 Dose: 25 mg Levothyroxine Sodium (Synthroid) 75 mcg PO DAILY@0630 [facility] Last Admin: 09/13/16 06:00 Dose: 75 mcg Losartan Potassium (Cozaar) 100 mg PO DAILY [facility] Last Admin: 09/13/16 10:23 Dose: 100 mg Rosuvastatin Calcium (Crestor) 10 mg PO HS [facility] Last Admin: 09/12/16 22:01 Dose: 10 mg - Labs Labs: PT 11.2 SECONDS (9.7-12.2) 09/10/16 17:27 INR 1.0 09/10/16 17:27 APTT 35 SECONDS (21-34) H 09/10/16 17:27 - Constitutional Appears: Non-toxic - Head Exam Head Exam: ATRAUMATIC, NORMOCEPHALIC - Eye Exam Eye Exam: Normal appearance - ENT Exam ENT Exam: Mucous Membranes Moist - Neck Exam Neck Exam: absent: Tenderness - Respiratory Exam Respiratory Exam: Clear to Ausculation Bilateral, NORMAL BREATHING PATTERN - Cardiovascular Exam Cardiovascular Exam: REGULAR RHYTHM - GI/Abdominal Exam GI & Abdominal Exam: Soft, Normal Bowel Sounds. absent: Tenderness - Extremities Exam Extremities Exam: Full ROM. absent: Pedal Edema - Neurological Exam Neurological Exam: Alert, Awake, Normal Gait, Oriented x3 - Psychiatric Exam Psychiatric exam: Normal Affect, Normal Mood Assessment and Plan - Assessment and Plan (Free Text) Assessment: Patient with multiple medical problems, NIDDM Hypertension Gout Infarct, controlling Blood pressure , on multiple BP medications being adjusted with cooperation of cardio- currently patient is bradycardic for further observation discussed with staff and patient
[2016-09-14 02:02] VITALS: RESP 20
[2016-09-14] MEDS: Levothyroxine 75 MCG TAB PO SCH (05:49)
[2016-09-14 08:33] VITALS: O2SAT 96
--- NOTE | 2016-09-14 15:13 | CP.PCM.PN ---
Subjective - Date & Time of Evaluation Date of Evaluation: 09/14/16 Time of Evaluation: 00:00 - Subjective Subjective: patient seen- Blood pressure improved- -no complaints discussion of new sets of meds and follow up in the clinic next week Objective - Vital Signs/Intake and Output Vital Signs (last 24 hours): Temp Pulse Resp BP Pulse Ox 97.8 F 68 20 158/88 H 96 09/14/16 08:31 09/14/16 10:50 09/14/16 08:31 09/14/16 10:54 09/14/16 08:31 Intake and Output: 09/14/16 09/14/16 06:59 18:59 Intake Total 240 Balance 240 - Medications Medications: Current Medications Allopurinol (Zyloprim) 100 mg PO BID [facility] Last Admin: 09/14/16 10:55 Dose: 100 mg Amlodipine Besylate (Norvasc) 10 mg PO DAILY [facility] Last Admin: 09/14/16 10:57 Dose: Not Given Aspirin (Ecotrin) 81 mg PO DAILY [facility] Last Admin: 09/14/16 10:56 Dose: 81 mg Carvedilol (Coreg) 12.5 mg PO BID [facility] Last Admin: 09/14/16 10:54 Dose: 12.5 mg Clonidine HCl (Catapres) 0.1 mg PO TID [facility] Last Admin: 09/14/16 10:55 Dose: 0.1 mg Clopidogrel Bisulfate (Plavix) 75 mg PO DAILY [facility] Last Admin: 09/14/16 10:55 Dose: 75 mg Famotidine (Pepcid) 20 mg PO DAILY [facility] Last Admin: 09/14/16 10:55 Dose: 20 mg Heparin Sodium (Porcine) (Heparin) 5,000 units SC Q12 [facility] Last Admin: 09/14/16 10:55 Dose: 5,000 units Hydralazine HCl (Apresoline) 25 mg PO TID [facility] Last Admin: 09/14/16 10:57 Dose: Not Given Levothyroxine Sodium (Synthroid) 75 mcg PO DAILY@0630 [facility] Last Admin: 09/14/16 05:49 Dose: 75 mcg Losartan Potassium (Cozaar) 100 mg PO DAILY [facility] Last Admin: 09/14/16 10:57 Dose: Not Given Rosuvastatin Calcium (Crestor) 10 mg PO HS [facility] Last Admin: 08/04/17 21:31 Dose: 10 mg - Labs Labs: PT 11.2 SECONDS (9.7-12.2) 09/10/16 17:27 INR 1.0 09/10/16 17:27 APTT 35 SECONDS (21-34) H 09/10/16 17:27 - Constitutional Appears: Well, Non-toxic - Head Exam Head Exam: ATRAUMATIC, NORMOCEPHALIC - Eye Exam Eye Exam: absent: Nystagmus - ENT Exam ENT Exam: Mucous Membranes Moist - Neck Exam Neck Exam: Full ROM. absent: Tenderness - Respiratory Exam Respiratory Exam: Clear to Ausculation Bilateral, NORMAL BREATHING PATTERN - Cardiovascular Exam Cardiovascular Exam: REGULAR RHYTHM - GI/Abdominal Exam GI & Abdominal Exam: Soft, Normal Bowel Sounds. absent: Tenderness - Extremities Exam Extremities Exam: absent: Pedal Edema, Tenderness - Back Exam Back Exam: absent: tenderness - Neurological Exam Neurological Exam: Alert, Awake, Normal Gait, Oriented x3 - Psychiatric Exam Psychiatric exam: Normal Affect, Normal Mood - Skin Skin Exam: Intact, Normal Color Assessment and Plan - Assessment and Plan (Free Text) Assessment: Patient admitted for svomiting that is resolved- with accelerated hypertension- being monitored and medication adjusted- no complaints- can go home today - will follow up in clinic next week
[2016-09-14 15:47] VITALS: BP 134/74; PULSE 60; TEMP 97.5
--- NOTE | 2016-09-14 17:21 | CP.PCM.PN ---
Subjective - Date & Time of Evaluation Date of Evaluation: 09/14/16 Time of Evaluation: 17:19 - Subjective Subjective: no chest pains or sob Objective - Vital Signs/Intake and Output Vital Signs (last 24 hours): Temp Pulse Resp BP Pulse Ox 97.5 F L 60 20 134/74 96 09/14/16 15:43 09/14/16 15:43 09/14/16 15:43 09/14/16 15:43 09/14/16 15:43 Intake and Output: 09/14/16 09/14/16 06:59 18:59 Intake Total 240 1140 Balance 240 1140 - Medications Medications: Current Medications Allopurinol (Zyloprim) 100 mg PO BID [facility] Last Admin: 09/14/16 10:55 Dose: 100 mg Amlodipine Besylate (Norvasc) 10 mg PO DAILY [facility] Last Admin: 09/14/16 10:57 Dose: Not Given Aspirin (Ecotrin) 81 mg PO DAILY [facility] Last Admin: 09/14/16 10:56 Dose: 81 mg Carvedilol (Coreg) 12.5 mg PO BID [facility] Last Admin: 09/14/16 10:54 Dose: 12.5 mg Clonidine HCl (Catapres) 0.1 mg PO TID [facility] Last Admin: 09/14/16 14:00 Dose: Not Given Clopidogrel Bisulfate (Plavix) 75 mg PO DAILY [facility] Last Admin: 09/14/16 10:55 Dose: 75 mg Famotidine (Pepcid) 20 mg PO DAILY [facility] Last Admin: 09/14/16 10:55 Dose: 20 mg Heparin Sodium (Porcine) (Heparin) 5,000 units SC Q12 [facility] Last Admin: 09/14/16 10:55 Dose: 5,000 units Hydralazine HCl (Apresoline) 25 mg PO QID [facility] Levothyroxine Sodium (Synthroid) 75 mcg PO DAILY@0630 [facility] Last Admin: 09/14/16 05:49 Dose: 75 mcg Losartan Potassium (Cozaar) 100 mg PO DAILY [facility] Last Admin: 09/14/16 10:57 Dose: Not Given Rosuvastatin Calcium (Crestor) 10 mg PO HS [facility] Last Admin: 09/13/16 21:31 Dose: 10 mg - Labs Labs: PT 11.2 SECONDS (9.7-12.2) 09/10/16 17:27 INR 1.0 09/10/16 17:27 APTT 35 SECONDS (21-34) H 09/10/16 17:27 - Constitutional Appears: No Acute Distress - Head Exam Head Exam: NORMOCEPHALIC - Eye Exam Eye Exam: Normal appearance - Respiratory Exam Respiratory Exam: Clear to Ausculation Bilateral - Cardiovascular Exam Cardiovascular Exam: REGULAR RHYTHM, Murmur - GI/Abdominal Exam GI & Abdominal Exam: Soft - Extremities Exam Extremities Exam: absent: Pedal Edema - Neurological Exam Neurological Exam: Alert, Oriented x3 Assessment and Plan - Assessment and Plan (Free Text) Assessment: [email or web address] controlled. ok to d/c home. will f/u at your request.
--- NOTE | 2016-09-15 00:22 | CP.PCM.DIS ---
Provider - Provider Date of Admission: 09/12/16 07:48 Attending physician: Leonor Wei MD Time Spent in preparation of Discharge (in minutes): 30 Hospital Course - Lab Results Lab Results: Most Recent Lab Values WBC 6.7 K/uL (4.8-10.8) 09/10/16 17: RBC 4.25 Mil/uL (3.80-5.20) 09/10/16 17: Hgb 11.4 g/dL (11.0-16.0) 09/10/16: Hct 35.1 % (34.0-47.0) 09/10/16: MCV 82.7 fL (81.0-99.0) 09/10/16: MCH 26.7 pg (27.0-31.0) L 09/10/16: MCHC 32.3 g/dL (33.0-37.0) L 09/10/16: RDW 15.3 % (11.5-14.5) H 09/10/16: Plt Count 178 K/uL (130-400) 09/10/16: MPV 10.2 fL (7.2-11.7) 09/10/16: Neut % (Auto) 65.6 % (50.0-75.0) 09/10/16: Lymph % (Auto) 16.2 % (20.0-40.0) L 09/10/16: Thomas % (Auto) 8.0 % (0.0-10.0) 09/10/16: Eos % (Auto) 9.2 % (0.0-4.0) H 09/10/16: Baso % (Auto) 1.0 % (0.0-2.0) 09/10/16: Neut # 4.4 K/uL (1.8-7.0) 09/10/16: Lymph # 1.1 K/uL (1.0-4.3) 09/10/16 17: Thomas # 0.5 K/uL (0.0-0.8) 09/10/16 17: Eos # 0.6 K/uL (0.0-0.7) 09/10/16 17:27 Baso # 0.1 K/uL (0.0-0.2) 09/10/16 17:27 ESR 47 mm/hr (0-20) H 09/11/16 06:33 PT 11.2 SECONDS (9.7-12.2) 09/10/16 17:27 INR 1.0 09/10/16 17:27 APTT 35 SECONDS (21-34) H 09/10/16 17:27 Sodium 145 mmol/L (132-148) 09/11/16 04:17 Potassium 3.7 mmol/L (3.6-5.2) 09/11/16 04:17 Chloride 100 mmol/L (98-107) 09/11/16 04:17 Carbon Dioxide 30 mmol/L (22-30) 09/11/16 04:17 Anion Gap 19 (10-20) 09/11/16 04:17 BUN 34 mg/dL (7-17) H 09/11/16 04:17 Creatinine 1.5 MG/DL (0.7-1.2) H 09/11/16 04:17 Est GFR ( Amer) 41 09/11/16 04:17 Est GFR (Non-Af Amer) 34 09/11/16 04:17 POC Glucose (mg/dL) 206 mg/dL (65-110) H 09/14/16 11:54 Random Glucose 101 mg/dL (65-105) 09/11/16 04:17 Hemoglobin A1c 5.9 % (4.2-6.5) 09/11/16 06:33 Calcium 9.3 mg/dl (8.6-10.4) 09/11/16 04:17 Total Bilirubin 0.9 mg/dL (0.2-1.3) 09/11/16 04:17 AST 20 U/L (14-36) 09/11/16 04:17 ALT 24 U/L (9-52) 09/11/16 04:17 Alkaline Phosphatase 113 U/L (38-126) 09/11/16 04:17 Total Creatine Kinase 241 U/L (30-135) H 09/11/16 19:42 CK-MB (Mass) 5.05 ng/mL (0.0-3.38) H 09/11/16 19:42 Troponin I 0.0150 ng/mL (0.00-0.120) 09/10/16 19:12 Troponin I, Quant 0.0290 ng/mL (0.00-0.120) 09/11/16 19:42 C-React Prot High Sens 4.12 mg/L (1.00-3.00) H 09/11/16 06:33 Total Protein 7.5 g/dL (6.3-8.3) 09/11/16 04:17 Albumin 3.9 g/dL (3.5-5.0) 09/11/16 04:17 Globulin 3.6 gm/dL (2.2-3.9) 09/11/16 04:17 Albumin/Globulin Ratio 1.1 (1.0-2.1) 09/11/16 04:17 Triglycerides 98 mg/dL (0-149) 09/11/16 06:33 Cholesterol 192 mg/dL (0-199) 09/11/16 06:33 LDL Cholesterol Direct 106 mg/dL (0-129) 09/11/16 06:33 HDL Cholesterol 58 mg/dL (30-70) 09/11/16 06:33 Vitamin B12 523 pg/mL (239-931) 09/11/16 04:17 Folate 12.5 ng/mL 09/11/16 04:17 Homocysteine 13.4 umol/L (4.7-12.6) H 09/11/16 04:17 Free T4 1.10 ng/dL (0.78-2.19) 09/11/16 06:33 TSH 3rd Generation 0.70 mIU/L (0.46-4.68) 09/11/16 06:33 Urine Color Colorless (YELLOW) 09/10/16 17:43 Urine Clarity Clear (Clear) 09/10/16 17:43 Urine pH 7.0 (5.0-8.0) 09/10/16 17:43 Ur Specific [place] 1.009 (1.003-1.030) 09/10/16 17:43 Urine Protein Negative mg/dL (NEGATIVE) 09/10/16 17:43 Urine Glucose (UA) 1+ mg/dL (Normal) 09/10/16 17:43 Urine Ketones Negative mg/dL (NEGATIVE) 09/10/16 17:43 Urine Blood Negative (NEGATIVE) 09/10/16 17:43 Urine Nitrate Negative (NEGATIVE) 09/10/16 17:43 Urine Bilirubin Negative (NEGATIVE) 09/10/16 17:43 Urine Urobilinogen Normal mg/dL (0.2-1.0) 09/10/16 17:43 Ur Leukocyte Esterase Neg Rogelio/uL (Negative) 09/10/16 17:43 Urine WBC (Auto) < 1 /hpf (0-5) 09/10/16 17:43 Ur Squamous Epith Cells 2 /hpf (0-5) 09/10/16 17:43 Serum Immunofixation Not detected (Not Detected) 09/11/16 06:33 RPR Nonreactive (NONREACTIVE) 09/11/16 06:33 Discharge Exam - Head Exam Head Exam: NORMOCEPHALIC - Eye Exam Eye Exam: Normal appearance. absent: Nystagmus - ENT Exam ENT Exam: Mucous Membranes Moist - Neck Exam Neck exam: Full Rom - Respiratory Exam Respiratory Exam: Clear to PA & Lateral, NORMAL BREATHING PATTERN - Cardiovascular Exam Cardiovascular Exam: REGULAR RHYTHM - GI/Abdominal Exam GI & Abdominal Exam: Normal Bowel Sounds. absent: Distended - Extremities Exam Extremities exam: full ROM - Neurological Exam Neurological exam: Alert, Normal Gait, Oriented x3 - Psychiatric Exam Psychiatric exam: Normal Affect, Normal Mood - Skin Skin Exam: Intact, Normal Color Discharge Plan - Discharge Medications Prescriptions: hydrALAZINE [Apresoline] 25 mg PO TID #90 tab cloNIDine [Catapres] 0.1 mg PO TID #90 tab Carvedilol [Coreg] 12.5 mg PO BID #60 tab Losartan [Cozaar] 100 mg PO DAILY #30 tab Rosuvastatin Calcium [Crestor] 10 mg PO HS #30 tab Aspirin [Ecotrin] 81 mg PO DAILY #30 amLODIPine [Norvasc] 10 mg PO DAILY #30 tab Famotidine [Pepcid] 20 mg PO DAILY #30 tab Clopidogrel [Plavix] 75 mg PO DAILY #30 tab Levothyroxine [Synthroid] 75 mcg PO DAILY@0630 #30 tab Allopurinol [Zyloprim] 100 mg PO BID #60 tab - Follow Up Plan Condition: GOOD Disposition: HOME/ ROUTINE Instructions: Allopurinol (By mouth), Clonidine (By mouth), Famotidine (By mouth), Levothyroxine (By mouth), Aspirin (By mouth), Influenza Virus Vaccine ( By injection), Pneumococcal Polyvalent Vaccine (By injection), Hydralazine (By mouth), Amlodipine (By mouth), Losartan (By mouth), Carvedilol (By mouth), Clopidogrel (By mouth), Rosuvastatin (By mouth), Diabetes Mellitus Type 2 in Adults (DC), Low Sodium Diet (DC), Hypertensive Crisis (DC), Dizziness (GEN) Additional Instructions: Please f/u wiht Dr. Wei office next continue medication as per Med. Rec. Referrals: Leonor Wei MD [Medical Doctor] -
== END 2016-09-14 18:07 | disposition home or self-care (01) | DRG 305 ==
LOC: C.ER 15:55 → C.9E 18:49 → C.5T 19:15 → C.9E 22:53 → C.6T 22:54 → OBSVTOIN 09-12 07:48
PROVIDERS: ADMIT Internal Medicine; ATTEND Internal Medicine
DX: I16.1 Hypertensive emergency (principal); N17.9 Acute kidney failure, unspecified; E11.22 Type 2 diabetes mellitus with diabetic chronic kidney disease; E11.42 Type 2 diabetes mellitus with diabetic polyneuropathy; I12.9 Hypertensive chronic kidney disease with stage 1 through stage 4 chronic kidney disease, or unspecified chronic kidney disease; E03.9 Hypothyroidism, unspecified; N18.9 Chronic kidney disease, unspecified; I25.10 Atherosclerotic heart disease of native coronary artery without angina pectoris; E78.5 Hyperlipidemia, unspecified; M19.90 Unspecified osteoarthritis, unspecified site; E78.00 Pure hypercholesterolemia, unspecified; M10.9 Gout, unspecified; Z91.14 Patient's other noncompliance with medication regimen; Z79.84 Long term (current) use of oral hypoglycemic drugs; Z87.891 Personal history of nicotine dependence

== ENCOUNTER 2016-11-18 21:37 | Inpatient (IN) | payer MEDICARE ==
--- NOTE | 2016-11-18 21:40 | C.PDOC ---
History Of Present Illness Patient brought to ED by EMS with complaints of difficulty ambulating worse for "couple of days" and spastic motion to right arm since yesterday worsening today. Patient is a non-insulin dependent diabetic and on field Glucose was > 600. Patient has no slurred speech and denies dizziness, weakness, headache or any other complaints at this time. Time Seen by Provider: 11/18/16 21:39 History Per: Patient History/Exam Limitations: no limitations Onset/Duration Of Symptoms: Days Current Symptoms Are (Timing): Still Present Severity: Mild Pain Scale Rating Of: 2 Current Diabetic Medications: Oral Medication Associated Infectious Symptoms: denies: Nausea, Vomiting Treatment Prior To Provider Evaluation: Accucheck Past Medical History Reviewed: Historical Data, Nursing Documentation, Vital Signs Vital Signs: Last Vital Signs Temp 97.1 F L 11/18/16 21:39 Pulse 72 11/18/16 22:16 Resp 14 11/18/16 22:16 BP 119/80 11/18/16 22:16 Pulse Ox 100 11/18/16 23:32 - Medical History PMH: Arthritis, Diabetes, HTN, Hypercholesterolemia, Hypothyroidism Surgical History: No Surg Hx Family History: States: [place], CAD - Social History Hx Tobacco Use: No Hx Alcohol Use: No Hx Substance Use: No - Immunization History Hx Tetanus Toxoid Vaccination: No Hx Influenza Vaccination: No Hx Pneumococcal Vaccination: No Review Of Systems Constitutional: Negative for: Fever, Chills Eyes: Negative for: Vision Change ENT: Negative for: Throat Pain Cardiovascular: Negative for: Chest Pain Respiratory: Negative for: Shortness of Breath Gastrointestinal: Negative for: Nausea, Vomiting Genitourinary: Negative for: Dysuria Musculoskeletal: Negative for: Back Pain Skin: Negative for: Rash Neurological: Negative for: Weakness, Headache, Dizziness Psych: Negative for: Anxiety Physical Exam - Physical Exam Appears: Non-toxic, No Acute Distress Skin: Warm, Dry, No Rash Head: Normacephalic Eye(s): bilateral: Normal Inspection Oral Mucosa: Moist Neck: Trachea Midline, Supple Chest: Symmetrical Cardiovascular: Rhythm Regular Respiratory: No Rales, No Rhonchi, No Wheezing Gastrointestinal/Abdominal: Bowel Sounds, Soft, No Tenderness, No Guarding, No Rebound Back: No CVA Tenderness Extremity: Normal ROM, No Tenderness Extremity: Bilateral: Atraumatic, Normal Color And Temperature, Normal ROM Pulses: Left Dorsalis Pedis: Normal, Right Dorsalis Pedis: Normal Neurological/Psych: Oriented x3, Normal Speech, Normal Cognition, Other (Non focal deficits. Observed spastic jerky movement of right arm) Gait: Unable To Assess ED Course And Treatment - Laboratory Results Result Diagrams: 11/18/16 21:54 11/18/16 21:54 ECG: Interpreted By Me, Viewed By Me ECG Rhythm: Sinus Rhythm (72), Nonspecific Changes O2 Sat by Pulse Oximetry: 100 (RA) Pulse Ox Interpretation: Normal Progress Note: corrected sodium is 139 NIHSS Stroke Scale - Date/Time Evaluation Performed Date Performed: 11/18/16 Time Performed: 21:45 When Was NIHSS Performed: Baseline - How Severe is the [place]oke Level of Consciousness: 0=Alert LOC to Questions: 0=Both comments correct LOC to commands: 0=Obeys both correctly Best Gaze: 0=Normal Visual: 0=No visual loss Facial: 0=Normal Motor Arm - Left: 0=No drift Motor Arm - Right: 0=No drift Motor Leg - Left: 0=No drift Motor Leg - Right: 0=No drift Limb Ataxia: 0=Absent Sensory: 0=Normal Best Language: 0=No aphasia Dysarthia: 0=Normal articulation Extinction & Inattention (Neglect): 0=Normal, no object Score: 0 Severity Of Stroke: 0= No Stroke Disposition Discussed With : Leonor Wei Comment: accepted the pt on her service and took over the care at 11:31 PM Doctor Will See Patient In The: Hospital Counseled Patient/Family Regarding: Studies Performed, Diagnosis - Disposition Disposition: HOSPITALIZED Disposition Time: 21:40 Condition: FAIR - POA Present On Arrival: Poor Glycemic Control - Clinical Impression Clinical Impression: Hyperglycemia, Hyperosmolar non-ketotic state in patient with type 2 diabetes mellitus - Scribe Statement The provider has reviewed the documentation as recorded by the Jerrellibpedro Gonsales All medical record entries made by the Jerrellibpedro were at my direction and personally dictated by me. I have reviewed the chart and agree that the record accurately reflects my personal performance of the history, physical exam, medical decision making, and the department course for this patient. I have also personally directed, reviewed, and agree with the discharge instructions and disposition. Decision To Admit - Pt Status Changed To: Hospital Disposition Of: Inpatient - Admit Certification Admit to Inpatient:: After my assessment, the patient will require hospitalization for at least two midnights. This is because of the severity of symptoms shown, intensity of services needed, and/or the medical risk in this patient being treated as an outpatient. - InPatient: Physician Admission Certification: I certify that this patient requires 2 or more midnights of care for the following reason:: After my assessment, the patient will require hospitalization for at least two midnights. This is because of the severity of symptoms shown, intensity of services needed, and/or the medical risk in this patient being treated as an outpatient. - . Bed Request Type: Regular Admitting Physician: Leonor Wei Patient Diagnosis: Hyperglycemia, Hyperosmolar non-ketotic state in patient with type 2 diabetes mellitus
[2016-11-18 21:42] VITALS: BMI 26.5
[2016-11-18] MEDS ORDERED: Sodium Chloride 0.9% 1,000 ML IV ONE (21:42)
[2016-11-18 22:00] LABS: BASO # 0.1 K/uL (0.0-0.2); BASO % 1.1 % (0.0-2.0); EOS # 0.3 K/uL (0.0-0.7); EOS % 3.6 % (0.0-4.0); HEMATOCRIT 36.7 % (34.0-47.0); LYMPH # 1.2 K/uL (1.0-4.3); LYMPH % 16.5 % (20.0-40.0); MEAN CELL VOLUME 84.1 fL (81.0-99.0); MEAN CORPUSCULAR HEMOGLOBIN 26.5 pg (27.0-31.0); MEAN CORPUSCULAR HGB CONC 31.5 g/dL (33.0-37.0); MEAN PLATELET VOLUME 10.4 fL (7.2-11.7); MONO # 0.7 K/uL (0.0-0.8); MONO % 9.2 % (0.0-10.0); NRBC % 0.1 % (0.0-2.0); RED CELL DISTRIBUTION WIDTH 14.4 % (11.5-14.5); WHITE BLOOD COUNT 7.5 K/uL (4.8-10.8)
[2016-11-18 22:09] LABS: VENOUS BLOOD GAS BASE EXCESS -0.7 mmol/L (0.0-2.0); VENOUS BLOOD GAS PCO2 49 mmHg (40-60); VENOUS BLOOD PH 7.33 (7.32-7.43)
[2016-11-18 22:12] LABS: CHLORIDE 86 mmol/L (98-107)
[2016-11-18 22:13] LABS: POTASSIUM 4.5 mmol/L (3.6-5.2)
[2016-11-18 22:15] LABS: ALB/GLOB RATIO 1.2 (1.0-2.1); ALKALINE PHOSPHATASE 185 U/L (38-126); ALT/SGPT 41 U/L (9-52); AST/SGOT 27 U/L (14-36); BILIRUBIN,TOTAL 0.8 mg/dL (0.2-1.3); BLOOD UREA NITROGEN 35 mg/dL (7-17); CALCIUM 8.6 mg/dl (8.6-10.4); CARBON DIOXIDE 20 mmol/L (22-30); GFR AFRICAN-AMERICAN 31; TOTAL PROTEIN 7.1 g/dL (6.3-8.3)
[2016-11-18 22:46] LABS: RBC URINE 2 /hpf (0-3); URINE BACTERIA RARE (<OCC); URINE BILIRUBIN NEGATIVE (NEGATIVE); URINE COLOR Straw (YELLOW); URINE GLUCOSE (UA) 3+ mg/dL (Normal); URINE KETONE NEGATIVE (NEGATIVE); URINE LEUKOCYTE ESTERASE NEG Leu/uL (Negative); URINE PROTEIN NEGATIVE (NEGATIVE); URINE UROBILINOGEN NORMAL mg/dL (0.2-1.0); WBC URINE 1 /hpf (0-5)
[2016-11-18 22:55] LABS: GLUCOSE,RANDOM 930 mg/dL (65-105); SODIUM 120 mmol/L (132-148)
[2016-11-18] MEDS ORDERED: (Novolin R) Insulin Human Regular 100 units/ml vial IV ONE (22:56)
[2016-11-18] MEDS ORDERED: (Novolin R) Insulin Human Regular 100 units/ml vial IV STA (23:13)
--- NOTE | 2016-11-18 23:16 | CT ---
EXAM: CT Head Without Intravenous Contrast CLINICAL HISTORY: 76 years old, female; Signs and symptoms; Other: Tremors; Additional info: Right sided tremors, new onset TECHNIQUE: Axial computed tomography images of the head/brain without intravenous contrast. All CT scans at this facility use one or more dose reduction techniques, viz.: automated exposure control; ma/kV adjustment per patient size (including targeted exams where dose is matched to indication; i.e. head); or iterative reconstruction technique. Coronal and sagittal reformatted images were created and reviewed. COMPARISON: No relevant prior studies available. FINDINGS: Brain: Mild atrophy. No intracranial hemorrhage. No mass. Few scattered foci of decreased attenuation within periventricular/subcortical white matter. Chronic lacunar infarct within RIGHT basal ganglia. No definite edema. Ventricles: No hydrocephalus. Bones/joints: No acute fracture. Soft tissues: Unremarkable. Vasculature: Minimal atherosclerotic disease of intracranial arteries. Sinuses: No acute sinusitis. Mastoid air cells: No mastoid effusion. Orbits: Unremarkable as visualized. IMPRESSION: 1. Nonspecific white matter changes. Acute infarction may be CT occult within first 24 hours. If a focal deficit persists, consider followup CT or MRI for further evaluation. 2. Incidental/non-acute findings are described above.
[2016-11-18] MEDS ORDERED: (Novolin R) Insulin Human Regular 100 units/ml vial ONE (23:21)
[2016-11-18 23:22] LABS: URINE BLOOD TRACE (NEGATIVE)
[2016-11-18] MEDS ORDERED: Sodium Chloride 0.9% 1,000 ML ONE (23:43)
[2016-11-18] MEDS: Sodium Chloride 0.9% 1,000 ML IV SCH (23:45)
[2016-11-19] MEDS ORDERED: (Novolin R) Insulin Human Regular 100 units/ml vial ONE (00:26)
[2016-11-19] MEDS: (Novolin R) Insulin Human Regular 100 units/ml vial SC SCH ×5 (00:28→22:11)
--- NOTE | 2016-11-19 01:10 | CP.PCM.HP ---
History of Present Illness - History of Present Illness History of Present Illness: 76 y.o. lady with PMH NIDDM Hypertension Hyperuricemia/gouty Arthritis was brought to ER due to spastic movement of shoulder and right arms patient denies fever cough chest pain headache SOB Dizziness,Gu GI but she reports she got weak and and need support in walking patient reports compliance to her medications but admit having soda and ice cream with grandson recently was placed on water pill due toswelling of feet In Er- sugar was found to be very high 900, patient is thirsty and urinate a lot Brain CT scan was negative patient was admitted for further evaluation and management Present on Admission - Present on Admission Any Indicators Present on Admission: No History of DVT/PE: No History of Uncontrolled Diabetes: Yes Urinary Catheter: No Decubitus Ulcer Present: No Review of Systems - Constitutional Constitutional: Weakness. absent: Fever, Headache - EENT Eyes: absent: Other Visual Disturbances Ears: absent: Dizziness Nose/Mouth/Throat: absent: Sinus Pain, Dysphagia - Breasts Breasts: absent: Pain - Cardiovascular Cardiovascular: absent: Chest Pain, Dyspnea, Orthopnea, Palpitations, Pedal Edema - Respiratory Respiratory: absent: Cough, Wheezing - Gastrointestinal Gastrointestinal: absent: Abdominal Pain, Constipation, Vomiting (but is thirsty ) - Genitourinary Genitourinary: absent: Difficulty Urinating (urinates a lot), Dysuria - Musculoskeletal Musculoskeletal: absent: Deformity (but weak to walk), Muscle Cramps, Numbness, Radiating Pain into Limb (except for numbness in middle finger left hand) - Integumentary Integumentary: absent: Bleeding Lesions, Rash, Skin Ulcer - Neurological Neurological: absent: Abnormal Hearing, Abnormal Speech, Behavioral Changes ( episodic spastic movement shoulder and right UE -), Confusion, Convulsions - Psychiatric Psychiatric: absent: Abnormal Sleep Pattern, Behavioral Changes, Confusion, Depression - Endocrine Endocrine: Polydipsia, Polyuria - Hematologic/Lymphatic Hematologic: absent: Easy Bleeding, Easy Bruising Past Patient History - Infectious Disease Hx of Infectious Diseases: None - Tetanus Immunizations Tetanus Immunization: Refused - Past Medical History & Family History Past Medical History?: Yes - Past Social History Smoking Status: Former Smoker - CARDIAC Hx Hypercholesterolemia: Yes Hx Hypertension: Yes - PULMONARY Hx Respiratory Disorders: No - NEUROLOGICAL Hx Neurological Disorder: No - HEENT Hx HEENT Problems: No - RENAL Hx Chronic Kidney Disease: No - ENDOCRINE/METABOLIC Hx Hypothyroidism: Yes - HEMATOLOGICAL/ONCOLOGICAL Hx Blood Disorders: No - INTEGUMENTARY Hx Dermatological Problems: No - MUSCULOSKELETAL/RHEUMATOLOGICAL Hx Arthritis: Yes - GASTROINTESTINAL Hx Gastrointestinal Disorders: No - GENITOURINARY/GYNECOLOGICAL Hx Genitourinary Disorders: No - PSYCHIATRIC Hx Substance Use: No - SURGICAL HISTORY Hx Surgeries: Yes (thyroid surgery) - ANESTHESIA Hx Anesthesia: Yes Hx Anesthesia Reactions: No Meds Allergies/Adverse Reactions: Allergies Allergy/AdvReac Type Severity Reaction Status Date / Time No Known Allergies Allergy Verified 07/22/15 12:59 Physical Exam - Constitutional Appears: Non-toxic, No Acute Distress - Head Exam Head Exam: ATRAUMATIC, NORMOCEPHALIC (dry lips ) - Skin Skin Exam: Dry (poor turgor), Intact, Normal Color Results - Vital Signs Recent Vital Signs: Last Vital Signs Temp 97.1 F L 11/18/16 21:39 Pulse 78 11/18/16 23:50 Resp 18 11/18/16 23:50 BP 126/64 11/18/16 23:58 Pulse Ox 97 11/18/16 23:50 - Labs Result Diagrams: 11/18/16 21:54 11/18/16 21:54 Labs: Laboratory Results - last 24 hr 11/18/16 11/18/16 11/18/16 21:42 21:54 21:54 WBC 7.5 RBC 4.36 Hgb 11.5 Hct 36.7 MCV 84.1 MCH 26.5 L MCHC 31.5 L RDW 14.4 Plt Count 214 MPV 10.4 Neut % (Auto) 69.6 Lymph % (Auto) 16.5 L [place] % (Auto) 9.2 Eos % (Auto) 3.6 Baso % (Auto) 1.1 Neut # 5.2 Lymph # 1.2 [place] # 0.7 Eos # 0.3 Baso # 0.1 pO2 VBG pH VBG pCO2 VBG HCO3 VBG Total CO2 VBG O2 Sat (Calc) VBG Base Excess VBG Potassium Glucose Lactate Crit Value Called To Crit Value Called By Crit Value Read Back Blood Gas Notified Time Sodium 120 L* Potassium 4.5 Chloride 86 L Carbon Dioxide 20 L Anion Gap 19 BUN 35 H Creatinine 1.9 H Est GFR ( Amer) 31 Est GFR (Non-Af Amer) 26 POC Glucose (mg/dL) > 500 H* Random Glucose 930 H* D Calcium 8.6 Total Bilirubin 0.8 AST 27 ALT 41 Alkaline Phosphatase 185 H Total Creatine Kinase CK-MB (Mass) Troponin I, Quant Total Protein 7.1 Albumin 3.9 Globulin 3.2 Albumin/Globulin Ratio 1.2 Lipase 153 Venous Blood Potassium Urine Color Urine Clarity Urine pH Ur Specific Wade Urine Protein Urine Glucose (UA) Urine Ketones Urine Blood Urine Nitrate Urine Bilirubin Urine Urobilinogen Ur Leukocyte Esterase Urine WBC (Auto) Urine RBC (Auto) Ur Squamous Epith Cells Urine Bacteria Serum Ketones Negative 11/18/16 11/18/16 11/18/16 22:04 22:17 22:27 WBC RBC Hgb Hct MCV MCH MCHC RDW Plt Count MPV Neut % (Auto) Lymph % (Auto) [place] % (Auto) Eos % (Auto) Baso % (Auto) Neut # Lymph # [place] # Eos # Baso # pO2 34 VBG pH 7.33 VBG pCO2 49 VBG HCO3 23.4 VBG Total CO2 27.3 VBG O2 Sat (Calc) 70.8 H VBG Base Excess -0.7 L VBG Potassium 4.2 Glucose > 750 H* Lactate 2.6 H Crit Value Called To [place] Crit Value Called By Piero Crit Value Read Back Y Blood Gas Notified Time 2207 Sodium 127.0 L Potassium Chloride 90.0 L Carbon Dioxide Anion Gap BUN Creatinine Est GFR ( Amer) Est GFR (Non-Af Amer) POC Glucose (mg/dL) > 500 H* Random Glucose Calcium Total Bilirubin AST ALT Alkaline Phosphatase Total Creatine Kinase CK-MB (Mass) Troponin I, Quant Total Protein Albumin Globulin Albumin/Globulin Ratio Lipase Venous Blood Potassium 4.2 Urine Color Straw Urine Clarity Clear Urine pH 6.0 Ur Specific Wade 1.022 Urine Protein Negative Urine Glucose (UA) 3+ H Urine Ketones Negative Urine Blood Trace H Urine Nitrate Negative Urine Bilirubin Negative Urine Urobilinogen Normal Ur Leukocyte Esterase Neg Urine WBC (Auto) 1 Urine RBC (Auto) 2 Ur Squamous Epith Cells 1 Urine Bacteria Rare Serum Ketones 11/18/16 11/18/16 11/19/16 22:59 23:49 00:13 WBC RBC Hgb Hct MCV MCH MCHC RDW Plt Count MPV Neut % (Auto) Lymph % (Auto) [place] % (Auto) Eos % (Auto) Baso % (Auto) Neut # Lymph # [place] # Eos # Baso # pO2 VBG pH VBG pCO2 VBG HCO3 VBG Total CO2 VBG O2 Sat (Calc) VBG Base Excess VBG Potassium Glucose Lactate Crit Value Called To Crit Value Called By Crit Value Read Back Blood Gas Notified Time Sodium Potassium Chloride Carbon Dioxide Anion Gap BUN Creatinine Est GFR ( Amer) Est GFR (Non-Af Amer) POC Glucose (mg/dL) > 500 H* 460 H* Random Glucose Calcium Total Bilirubin AST ALT Alkaline Phosphatase Total Creatine Kinase 135 CK-MB (Mass) 1.50 Troponin I, Quant 0.0120 Total Protein Albumin Globulin Albumin/Globulin Ratio Lipase Venous Blood Potassium Urine Color Urine Clarity Urine pH Ur Specific Wade Urine Protein Urine Glucose (UA) Urine Ketones Urine Blood Urine Nitrate Urine Bilirubin Urine Urobilinogen Ur Leukocyte Esterase Urine WBC (Auto) Urine RBC (Auto) Ur Squamous Epith Cells Urine Bacteria Serum Ketones Assessment & Plan - Assessment and Plan (Free Text) Assessment: Patient with NIDDM- admitted for hyperglycemia- -received insulin- will monitor , sliding scale, IVF, heart healthy diet- Education TLC Recent diuretics-Hyponatremia and abnormal movements- IVF NS and and follow ups CRI (has been under the care of Renal) and Dehydration -IVF, DM diet heart healthy diet DM education General Weaknes- possibly secondary from above patient is conversant aware of condition, guarded but stable GI prophylaxis on Plavix and aspirin for - Date & Time Date: 11/18/16 Time: 11:30
[2016-11-19] MEDS: Levothyroxine 75 MCG TAB PO SCH (06:54)
[2016-11-19 07:21] LABS: POTASSIUM 3.6 mmol/L (3.6-5.2)
[2016-11-19 07:23] LABS: BILIRUBIN,TOTAL 0.5 mg/dL (0.2-1.3); TOTAL PROTEIN 7.2 g/dL (6.3-8.3)
[2016-11-19 07:24] LABS: CALCIUM 9.5 mg/dl (8.6-10.4)
[2016-11-19 07:42] LABS: BASO # 0.1 K/uL (0.0-0.2); BASO % 1.1 % (0.0-2.0); EOS # 0.4 K/uL (0.0-0.7); EOS % 5.4 % (0.0-4.0); HEMATOCRIT 36.1 % (34.0-47.0); LYMPH # 1.8 K/uL (1.0-4.3); LYMPH % 25.1 % (20.0-40.0); MEAN CORPUSCULAR HEMOGLOBIN 26.7 pg (27.0-31.0); MEAN CORPUSCULAR HGB CONC 32.6 g/dL (33.0-37.0); MEAN PLATELET VOLUME 10.4 fL (7.2-11.7); MONO # 0.7 K/uL (0.0-0.8); MONO % 9.5 % (0.0-10.0); RED CELL DISTRIBUTION WIDTH 14.3 % (11.5-14.5); WHITE BLOOD COUNT 7.1 K/uL (4.8-10.8)
[2016-11-19 07:49] LABS: MEAN CELL VOLUME 81.8 fL (81.0-99.0)
[2016-11-19 07:55] LABS: THYROID STIMULATING HORMONE 1.02 mIU/L (0.46-4.68)
--- NOTE | 2016-11-19 07:55 | RAD ---
PROCEDURE: CHEST RADIOGRAPH, 1 VIEW HISTORY: Diabetic COMPARISON: Portable chest 09/10/2016. FINDINGS: LUNGS: Prior limited bilateral basilar atelectasis appears to have resolved. PLEURA: No pneumothorax or pleural fluid seen. CARDIOVASCULAR: Normal. OSSEOUS STRUCTURES: No significant abnormalities. VISUALIZED UPPER ABDOMEN: Normal. OTHER FINDINGS: None. IMPRESSION: No interval acute cardiopulmonary disease appreciated. Resolution of prior limited bilateral basilar atelectasis and pleural effusions.
--- NOTE | 2016-11-19 08:43 | CP.PCM.PN ---
Subjective - Date & Time of Evaluation Date of Evaluation: 11/19/16 Time of Evaluation: 09:00 - Subjective Subjective: Patient seen in bed- feedingself conversant, daughter by bedside denies any complaint like fever pain cough urine bowel- feels beter - discussed PT eval and subacute plan still has some episodic muscular movement right shoulder , no paralysis, moves all extremeties equally Neuro on case Objective - Vital Signs/Intake and Output Vital Signs (last 24 hours): Temp Pulse Resp BP Pulse Ox 97.1 F L 74 18 107/67 98 11/18/16 21:39 11/19/16 01:47 11/19/16 01:47 11/19/16 01:47 11/19/16 01:47 Intake and Output: 11/19/16 11/19/16 06:59 18:59 Intake Total 1500 Output Total 180 Balance 1320 - Medications Medications: Current Medications Allopurinol (Zyloprim) 100 mg PO BID [facility] Last Admin: 11/19/16 00:30 Dose: 100 mg Amlodipine Besylate (Norvasc) 10 mg PO DAILY [facility] Aspirin (Ecotrin) 81 mg PO DAILY [facility] Carvedilol (Coreg) 12.5 mg PO BID [facility] Last Admin: 11/18/16 23:58 Dose: Not Given Clonidine HCl (Catapres) 0.1 mg PO TID [facility] Last Admin: 11/18/16 23:58 Dose: Not Given Clopidogrel Bisulfate (Plavix) 75 mg PO DAILY [facility] Famotidine (Pepcid) 20 mg PO DAILY [facility] Heparin Sodium (Porcine) (Heparin) 5,000 units SC Q12 [facility] Hydralazine HCl (Apresoline) 25 mg PO TID [facility] Last Admin: 11/18/16 23:58 Dose: Not Given Sodium Chloride (Sodium Chloride 0.9%) 1,000 mls @ 80 mls/hr IV .[id number] [facility] Last Admin: 11/18/16 23:45 Dose: 80 mls/hr Insulin Human Regular (Novolin R) 0 unit SC ACHS [facility] PRN Reason: Protocol Last Admin: 11/19/16 00:28 Dose: 4 unit Levothyroxine Sodium (Synthroid) 75 mcg PO DAILY@0630 [facility] Last Admin: 11/19/16 06:54 Dose: 75 mcg Losartan Potassium (Cozaar) 100 mg PO DAILY [facility] Pneumococcal Polyvalent Vaccine (Pneumovax 23 Vaccine) 0.5 ml IM .ONCE ONE Stop: 11/21/16 14:01 Rosuvastatin Calcium (Crestor) 10 mg PO HS [facility] Last Admin: 11/19/16 00:29 Dose: 10 mg - Labs Labs: 11/19/16 07:00 11/19/16 07:00 - Constitutional Appears: Non-toxic (conversant, awake alert ) - Head Exam Head Exam: ATRAUMATIC, NORMOCEPHALIC - Eye Exam Eye Exam: Normal appearance - ENT Exam ENT Exam: Mucous Membranes Dry - Neck Exam Neck Exam: Full ROM. absent: Tenderness - Respiratory Exam Respiratory Exam: Clear to Ausculation Bilateral, NORMAL BREATHING PATTERN - Cardiovascular Exam Cardiovascular Exam: absent: REGULAR RHYTHM - GI/Abdominal Exam GI & Abdominal Exam: Soft, Normal Bowel Sounds. absent: Tenderness - Back Exam Back Exam: Full ROM. absent: tenderness - Neurological Exam Neurological Exam: Alert, Awake, Normal Gait (but weak to carry self may fall ) , Oriented x3 - Psychiatric Exam Psychiatric exam: Normal Affect, Normal Mood - Skin Skin Exam: Dry, Intact, Normal Color Assessment and Plan - Assessment and Plan (Free Text) Assessment: Patient with NIDDM- admitted with non Ketotic hyperosmolar hyperglycemic state continue IVF, sodium noted to be improving, insulin started , patient is awake stable, DM hearthealthy diet , DM education DEhydration- IVF as jamel Hypertension- monitoring, Debility adjust medication accordingly Debility ,poor gait-PT eval and subacute accordingly hypothyroidism- continue medication Abnormal muscle movement- shoulders- metabolic? -further evaluation by neuro
[2016-11-19 09:30] LABS: MAGNESIUM 2.1 mg/dL (1.6-2.3)
[2016-11-19] MEDS: Sodium Chloride 0.9% 1,000 ML IV SCH ×2 (12:15→16:17)
--- NOTE | 2016-11-19 15:03 | MRI ---
PROCEDURE: MRI BRAIN WITHOUT CONTRAST HISTORY: stroke Vs mass COMPARISON: Prior unenhanced head CT 11/18/2016 and unenhanced brain MRI 09/11/2016. TECHNIQUE: Multiplanar, multisequence MR images of the brain were obtained without intravenous contrast enhancement. FINDINGS: HEMORRHAGE: None DWI: No evidence of an acute or early subacute infarction. BRAIN PARENCHYMA: Diffuse cerebral atrophy chronic microangiopathy are reiterated in the interval as well as a few chronic lacunar infarcts at the right greater left basal ganglia and lateral superior right thalamus/ posterior right external capsule. There is no mass effect or suspicious extra-axial fluid collection identified. The no interval midline brain changes are identified. Craniocervical junction appears intact once again. VENTRICLES: Unremarkable. No hydrocephalus. CRANIUM: Unremarkable. ORBITS: Grossly unremarkable. PARANASAL SINUSES/MASTOIDS: Clear VASCULAR SYSTEM: Skull base flow voids intact. OTHER FINDINGS: None. IMPRESSION: Stable age related neuro degenerative changes are identified, however, no acute or subacute brain infarction is appreciated in the interval. There is no mass effect hydrocephalus or intracranial hemorrhage appreciated in the interval.
[2016-11-19 21:27] LABS: POTASSIUM 3.5 mmol/L (3.6-5.2)
[2016-11-19 21:29] LABS: BILIRUBIN,TOTAL 0.6 mg/dL (0.2-1.3)
[2016-11-19 21:30] LABS: CALCIUM 8.5 mg/dl (8.6-10.4); TOTAL PROTEIN 6.3 g/dL (6.3-8.3)
--- NOTE | 2016-11-19 21:31 | CON ---
DATE: 11/19/2016 ATTENDING PHYSICIAN: Dr. Leonor Wei. LOCATION: The patient is in room #556, bed D. REASON FOR CONSULTATION: Abnormal movement of her right side. HISTORY OF PRESENT ILLNESS: Ms. Nickie Cheema is a 76-year-old right-handed, well-built, -Greek female in usual state of health. Around 9:00 a.m., she woke up from the bed with abnormal jerky movement of the right arm. She also noticed her left fourth digit was numb. The symptoms were persistent, so she decided to come to the hospital for further evaluation. No history of generalized tonic-clonic activities. No history of fall. No history of head injuries. No history focal weakness besides the above documentation. PAST MEDICAL HISTORY: Dyslipidemia, newly diagnosed diabetes mellitus, gastroesophageal reflux disease, hypothyroidism, gouty arthritis and hypertension. PERSONAL HISTORY: Denies smoking or alcohol use. ALLERGIES: NO KNOWN ALLERGIES. REVIEW OF SYSTEMS: A 16-point system has been reviewed. From neuro, acute jerky movements. MEDICATIONS: Hydralazine, clonidine, Coreg, Cozaar, Crestor, heparin subcutaneous, Levemir, Norvasc, Novolin, Pepcid, Plavix, IV fluids, Synthroid and allopurinol. PHYSICAL EXAMINATION: VITAL SIGNS: Blood pressure 147/84, mean arterial pressure of 105, respiratory rate 18 and temperature 97.9 with a pulse rate of 61 and regular. NECK: Supple. No carotid bruit. HEART: Sounds regular. CHEST: Fair air entry. EXTREMITIES: Distal muscle weakness and atrophy noted. NEUROLOGIC: Mental Status Examination: She is awake, alert and oriented to person, place and time. Speech is clear. Naming, repetition, fluency and comprehension all within normal. Cranial Nerve Examination: Visual field intact. Pupils reactive to light. Extraocular movement normal. No nystagmus. No facial sensory deficit. No facial asymmetry. Hearing is normal. Tongue is midline. Good gag. Motor Examination: On outstretched hand with eyes closed, asterixis noted on both upper extremities. Mild sensory tremor also noted with eyes closed. No drift noted. Tone is normal in all four extremities. Strength is normal in all four extremities. Deep Tendon Reflexes: Biceps, brachialis, triceps, knee, ankle all are absent. Plantars are downgoing. Sensory Examination: Significant bilateral distal symmetric sensory motor neuropathy noted. [id number] test is mildly dysmetria proportionate to her possible neuropathy. Gait is deferred at this time. WORKUP: CT of the head reported as negative for stroke or bleed. The MRI of the brain is also reviewed by me which does not show any acute pathology except for mild small vessel disease. EKG; normal sinus rhythm. Blood workup; WBC 7.1, hemoglobin 11.8, hematocrit 36.1 and platelets 212. Sodium 131, potassium 3.6, chloride 96, bicarbonate 24, BUN 28, creatinine 1.7, glucose more than 500, latest one was 397, alkaline phosphatase 1.62, , prolactin 14.1, TSH 1.02 and hemoglobin A1c was 14.5. Urine shows 3+ glucose, blood is trace. Serum ketones negative. CONCLUSION: Ms. Nickie Cheema has been presenting with a possible metabolic insult secondary to her diabetes presenting with asterixis which also superimposed with bilateral distal symmetric sensory motor neuropathy probably secondary to her underlying diabetes mellitus. The current examination does not show any long tract signs from the brain. However, thalamic stroke could present with this asterixis. However, presenting with the metabolic derangement, hepatic cause should be ruled out. RECOMMENDATION: 1. EEG is already recommended, that will be followed by me. 2. Continue antiplatelets. 3. Diabetic control. 4. Proper hydration. 5. Weight reduction should be addressed. 6. The patient is also recommended to have ammonia level and liver functions also recommended. 7. The patient should be off the bed and physiotherapy should be initiated as it is possible. The patient will be followed closely with you. Shaquille Dempsey MD [email or web address]
[2016-11-19] MEDS ORDERED: Insulin Detemir 100 units/ml Vial (Levemir) SC SCH ×2 (22:00)
[2016-11-20] MEDS: Sodium Chloride 0.9% 1,000 ML IV SCH ×2 (01:05→05:56)
[2016-11-20] MEDS ORDERED: Insulin Detemir 100 units/ml Vial (Levemir) SC SCH (04:35)
[2016-11-20] MEDS: Levothyroxine 75 MCG TAB PO SCH (05:55)
[2016-11-20 08:29] LABS: ALB/GLOB RATIO 1.1 (1.0-2.1); BILIRUBIN,DIRECT 0.4 mg/dL (0.0-0.4); BILIRUBIN,TOTAL 0.7 mg/dL (0.2-1.3); POTASSIUM 3.4 mmol/L (3.6-5.2); TOTAL PROTEIN 6.9 g/dL (6.3-8.3)
[2016-11-20 08:31] LABS: ALB/GLOB RATIO 1.1 (1.0-2.1); BILIRUBIN,TOTAL 0.7 mg/dL (0.2-1.3); TOTAL PROTEIN 6.7 g/dL (6.3-8.3)
[2016-11-20 08:32] LABS: CALCIUM 8.8 mg/dl (8.6-10.4)
[2016-11-20] MEDS: (Novolin R) Insulin Human Regular 100 units/ml vial SC SCH ×4 (08:42→21:22)
--- NOTE | 2016-11-20 08:59 | PN ---
DATE: 11/20/2016 TIME OF EVALUATION: 7:05 a.m. NEUROLOGICAL PROBLEM: Asterixis with possible myoclonic jerk secondary to metabolic complication either hyperglycemia versus hepatic insult. PHYSICAL EXAMINATION: VITAL SIGNS: Blood pressure of 142/78, mean arterial pressure of 99, respiratory rate of 20, temperature of 97.7, and pulse rate of 65 and regular. CENTRAL NERVOUS SYSTEM: The patient is awake, alert. She feels that her symptoms almost have gone. Numbness is still persistent on her right thumb and index finger. Her examination is bilateral distal symmetric sensory, motor neuropathy. There is no focal weakness. No long track sign noted. Asterixis which was found yesterday, also disappeared today. MEDICATIONS: The patient's antiplatelet which was discontinued Plavix, but there is no reason to continue two antiplatelet medication for her neurological stroke prophylaxis. However, if it is indicated from cardiac point of view, I agree with their recommendation. ASSESSMENT AND PLAN: Diabetic control, weight control should be addressed. Electroencephalogram is normal for her age, no focal slowing or paroxysmal activities noted. From a neurological point of view, the patient is stable. The patient should follow up visit as outpatient for her existing neuropathy. Shaquille Dempsey MD
[2016-11-20] MEDS ORDERED: Potassium Chloride 20 mEq ER Tab PO ONE (15:30)
[2016-11-20] MEDS ORDERED: POLYETHYLENE GLYCOL 3350 17 GM/Dose PACKET PO STA (15:35)
--- NOTE | 2016-11-20 15:37 | CP.PCM.PN ---
Subjective - Date & Time of Evaluation Date of Evaluation: 11/20/16 Time of Evaluation: 02:30 - Subjective Subjective: Patient seen- is happy conversant- discussed DM status admits poor compliance to food Dietary input appreciated dscussed Insulin for now patient is awarev of condition andplan Objective - Vital Signs/Intake and Output Vital Signs (last 24 hours): Temp Pulse Resp BP Pulse Ox 97.7 F 64 20 142/78 97 11/19/16 23:48 11/20/16 10:13 11/19/16 23:48 11/20/16 10:22 11/19/16 23:48 Intake and Output: 11/20/16 11/20/16 06:59 18:59 Intake Total 540 Balance 540 - Medications Medications: Current Medications Allopurinol (Zyloprim) 100 mg PO BID [facility] Last Admin: 11/20/16 10:22 Dose: 100 mg Amlodipine Besylate (Norvasc) 10 mg PO DAILY [facility] Last Admin: 11/20/16 10:22 Dose: 10 mg Aspirin (Ecotrin) 81 mg PO DAILY [facility] Last Admin: 11/20/16 10:22 Dose: 81 mg Carvedilol (Coreg) 12.5 mg PO BID [facility] Last Admin: 11/20/16 10:22 Dose: 12.5 mg Clonidine HCl (Catapres) 0.1 mg PO TID [facility] Last Admin: 11/20/16 13:29 Dose: 0.1 mg Famotidine (Pepcid) 20 mg PO DAILY [facility] Last Admin: 11/20/16 10:22 Dose: 20 mg Glimepiride (Amaryl) 1 mg PO BID [facility] Last Admin: 11/20/16 10:22 Dose: 1 mg Heparin Sodium (Porcine) (Heparin) 5,000 units SC Q12 [facility] Last Admin: 11/20/16 10:23 Dose: 5,000 units Hydralazine HCl (Apresoline) 25 mg PO TID [facility] Last Admin: 11/20/16 13:29 Dose: 25 mg Sodium Chloride (Sodium Chloride 0.9%) 1,000 mls @ 80 mls/hr IV .[id number] [facility] Last Admin: 11/20/16 05:56 Dose: 80 mls/hr Insulin Detemir (Levemir) 15 unit SC [facility] Insulin Human Regular (Novolin R) 0 unit SC [facility] PRN Reason: Protocol Last Admin: 11/20/16 12:07 Dose: 8 unit Levothyroxine Sodium (Synthroid) 75 mcg PO DAILY@0630 [facility] Last Admin: 11/20/16 05:55 Dose: 75 mcg Losartan Potassium (Cozaar) 100 mg PO DAILY [facility] Last Admin: 11/20/16 10:22 Dose: 100 mg Pneumococcal Polyvalent Vaccine (Pneumovax 23 Vaccine) 0.5 ml IM .ONCE ONE Stop: 11/21/16 14:01 Rosuvastatin Calcium (Crestor) 10 mg PO HS [facility] Last Admin: 11/19/16 22:07 Dose: 10 mg - Labs Labs: 11/19/16 07:00 11/20/16 07:44 - Constitutional Appears: Well, No Acute Distress - Head Exam Head Exam: ATRAUMATIC, NORMOCEPHALIC - Eye Exam Eye Exam: Normal appearance - ENT Exam ENT Exam: Mucous Membranes Moist - Neck Exam Neck Exam: Full ROM - Respiratory Exam Respiratory Exam: Clear to Ausculation Bilateral, NORMAL BREATHING PATTERN - Cardiovascular Exam Cardiovascular Exam: REGULAR RHYTHM - GI/Abdominal Exam GI & Abdominal Exam: Soft, Normal Bowel Sounds. absent: Tenderness - Extremities Exam Extremities Exam: Full ROM, Normal Inspection. absent: Pedal Edema - Back Exam Back Exam: absent: rash noted - Neurological Exam Neurological Exam: Alert, Awake, Normal Gait, Oriented x3 - Psychiatric Exam Psychiatric exam: Normal Affect, Normal Mood - Skin Skin Exam: Intact, Normal Color Assessment and Plan - Assessment and Plan (Free Text) Assessment: Patient with Non ketotic Hyperglycemia- on IVF Insulin DM po meds- with some improvement Hyponatremia improving with improvement of sugar and IVF Potassium going down as ex[pected- will supplement and monitor Dietary discussion and further management Neuro Discussion and cardio discussion- no stroke, good EF , will DC plavix and keep on aspirin keep current care
[2016-11-20] MEDS: Insulin Detemir 100 units/ml Vial (Levemir) SC SCH (21:55)
--- NOTE | 2016-11-20 22:41 | CARD ---
APPROVED REPORT EKG Measurement Heart [id number] <Conclusion> Normal sinus rhythm Left axis deviation Inferior infarct, age undetermined T wave abnormality, consider lateral ischemia Abnormal ECG
[2016-11-21 00:06] VITALS: O2SAT 98
[2016-11-21] MEDS: Sodium Chloride 0.9% 1,000 ML IV SCH (01:44)
[2016-11-21] MEDS: Levothyroxine 75 MCG TAB PO SCH (05:43)
[2016-11-21 07:54] LABS: POTASSIUM 4.2 mmol/L (3.6-5.2)
[2016-11-21 07:56] LABS: ALB/GLOB RATIO 1.1 (1.0-2.1); BILIRUBIN,TOTAL 0.9 mg/dL (0.2-1.3); TOTAL PROTEIN 6.8 g/dL (6.3-8.3)
[2016-11-21 07:57] LABS: CALCIUM 8.9 mg/dl (8.6-10.4)
[2016-11-21] MEDS: Potassium Chloride 10 mEq ER Tab PO SCH (09:03)
--- NOTE | 2016-11-21 09:41 | CP.PCM.PN ---
Subjective - Date & Time of Evaluation Date of Evaluation: 11/21/16 Time of Evaluation: 09:30 - Subjective Subjective: Patient seen, family by bedside, no complaints sugar below 200 aware of conditon and plan discussed Insulin, aware of it since is on insulin aware of subacute plan still has to go for doppler US LE Objective - Vital Signs/Intake and Output Vital Signs (last 24 hours): Temp Pulse Resp BP Pulse Ox 97.8 F 55 L 20 157/88 H 98 11/21/16 08:33 11/21/16 08:33 11/21/16 08:33 11/21/16 09:09 11/21/16 00:03 - Medications Medications: Current Medications Allopurinol (Zyloprim) 100 mg PO BID [facility] Last Admin: 11/21/16 09:02 Dose: 100 mg Amlodipine Besylate (Norvasc) 10 mg PO DAILY [facility] Last Admin: 11/21/16 09:15 Dose: 10 mg Aspirin (Ecotrin) 81 mg PO DAILY [facility] Last Admin: 11/21/16 09:09 Dose: 81 mg Carvedilol (Coreg) 12.5 mg PO BID [facility] Last Admin: 11/21/16 09:09 Dose: 12.5 mg Clonidine HCl (Catapres) 0.1 mg PO TID [facility] Last Admin: 11/21/16 09:02 Dose: 0.1 mg Docusate Sodium (Colace) 100 mg PO BID [facility] Last Admin: 11/21/16 09:02 Dose: 100 mg Famotidine (Pepcid) 20 mg PO DAILY [facility] Last Admin: 11/21/16 09:02 Dose: 20 mg Glimepiride (Amaryl) 1 mg PO BID [facility] Last Admin: 11/21/16 09:09 Dose: 1 mg Heparin Sodium (Porcine) (Heparin) 5,000 units SC Q12 [facility] Last Admin: 11/21/16 09:04 Dose: 5,000 units Hydralazine HCl (Apresoline) 25 mg PO TID [facility] Last Admin: 11/21/16 09:02 Dose: 25 mg Sodium Chloride (Sodium Chloride 0.9%) 1,000 mls @ 80 mls/hr IV .[id number] [facility] Last Admin: 11/21/16 01:44 Dose: Not Given Insulin Detemir (Levemir) 16 unit SC HS [facility] Last Admin: 11/20/16 21:55 Dose: 16 unit Insulin Human Regular (Novolin R) 0 unit SC ACHS [facility] PRN Reason: Protocol Last Admin: 11/20/16 21:22 Dose: Not Given Levothyroxine Sodium (Synthroid) 75 mcg PO DAILY@0630 [facility] Last Admin: 11/21/16 05:43 Dose: 75 mcg Losartan Potassium (Cozaar) 100 mg PO DAILY [facility] Last Admin: 11/21/16 09:02 Dose: 100 mg Pneumococcal Polyvalent Vaccine (Pneumovax 23 Vaccine) 0.5 ml IM .ONCE ONE Stop: 11/21/16 14:01 Potassium Chloride (Klor-Con 10) 10 meq PO BRK [facility] Stop: 11/22/16 23:59 Last Admin: 11/21/16 09:03 Dose: 10 meq Rosuvastatin Calcium (Crestor) 10 mg PO HS [facility] Last Admin: 11/20/16 21:55 Dose: 10 mg - Labs Labs: 11/19/16 07:00 11/21/16 07:06 - Constitutional Appears: Well, Non-toxic (ambulates, ) - Head Exam Head Exam: ATRAUMATIC, NORMOCEPHALIC - Eye Exam Eye Exam: Normal appearance - ENT Exam ENT Exam: Mucous Membranes Moist - Respiratory Exam Respiratory Exam: Clear to Ausculation Bilateral, NORMAL BREATHING PATTERN - Cardiovascular Exam Cardiovascular Exam: REGULAR RHYTHM - GI/Abdominal Exam GI & Abdominal Exam: Soft, Normal Bowel Sounds. absent: Tenderness - Extremities Exam Extremities Exam: absent: Pedal Edema, Tenderness (weal pulses) - Back Exam Back Exam: absent: rash noted - Neurological Exam Neurological Exam: Alert, Awake, Normal Gait, Oriented x3 - Psychiatric Exam Psychiatric exam: Normal Affect, Normal Mood - Skin Skin Exam: Intact, Normal Color Assessment and Plan - Assessment and Plan (Free Text) Plan: Patient with NKHyperglycemia with dehydration placed on IVF insulin DM po mes, improving FS below 200- will keep insulin for now, will DC IVF- is feeding , ambulates but need PT agreed to subacute Hypokalemia resolved CRI- stable improved Weak pedal pulses- awaiting for doppler LE arrange for transfer
--- NOTE | 2016-11-21 11:51 | EEG ---
DATE: 11/19/2016 This is a 16-channel electroencephalogram of an awake and drowsy adult. During the study, photic stimulation was performed. Hyperventilation was not performed. The resting electroencephalogram consists of 40-50 microvolts 9 to 11 Hz alpha activity seen at parietal and occipital leads. At the anterior leads, fast activity superimposed with 2 to 3 Hz delta activity is seen. The alpha activity is symmetrically attenuated with eye opening. Some movement artifact contaminant with the background rhythm. The photic stimulation did not evoke driving response noted after 2 to 20 Hz. IMPRESSION: This is a normal electroencephalogram of an awake and drowsy adult. During the study, neither electroencephalographic, paroxysmal activities nor focal slowing noted. Shaquille Dempsey MD
[2016-11-21] MEDS: (Novolin R) Insulin Human Regular 100 units/ml vial SC SCH ×4 (12:02→22:42)
[2016-11-21] MEDS ORDERED: Pneumococcal 23-Valent Vaccine IM ONE (14:00)
--- NOTE | 2016-11-21 15:47 | CP.PCM.PN ---
Subjective - Date & Time of Evaluation Date of Evaluation: 11/21/16 Time of Evaluation: 09:00 - Subjective Subjective: Patient seen in the floor, she will be transferred to different floor daughter by bedside currently no complaintsdiscussion of DM status and care currently the FS are less than 200 potassium improved no abnormal muscle movemnts seen by neuro- no stroke Objective - Vital Signs/Intake and Output Vital Signs (last 24 hours): Temp Pulse Resp BP Pulse Ox 97.8 F 55 L 20 130/80 98 11/21/16 08:33 11/21/16 08:33 11/21/16 08:33 11/21/16 13:49 11/21/16 00:03 - Medications Medications: Current Medications Allopurinol (Zyloprim) 100 mg PO BID [facility] Last Admin: 11/21/16 09:02 Dose: 100 mg Amlodipine Besylate (Norvasc) 10 mg PO DAILY [facility] Last Admin: 11/21/16 09:15 Dose: 10 mg Aspirin (Ecotrin) 81 mg PO DAILY [facility] Last Admin: 11/21/16 09:09 Dose: 81 mg Carvedilol (Coreg) 12.5 mg PO BID [facility] Last Admin: 11/21/16 09:09 Dose: 12.5 mg Clonidine HCl (Catapres) 0.1 mg PO TID [facility] Last Admin: 11/21/16 13:57 Dose: 0.1 mg Docusate Sodium (Colace) 100 mg PO BID [facility] Last Admin: 11/21/16 09:02 Dose: 100 mg Famotidine (Pepcid) 20 mg PO DAILY [facility] Last Admin: 11/21/16 09:02 Dose: 20 mg Glimepiride (Amaryl) 1 mg PO BID [facility] Last Admin: 11/21/16 09:09 Dose: 1 mg Heparin Sodium (Porcine) (Heparin) 5,000 units SC Q12 [facility] Last Admin: 11/21/16 09:04 Dose: 5,000 units Hydralazine HCl (Apresoline) 25 mg PO TID [facility] Last Admin: 11/21/16 13:57 Dose: 25 mg Insulin Detemir (Levemir) 16 unit SC HS [facility] Last Admin: 11/20/16 21:55 Dose: 16 unit Insulin Human Regular (Novolin R) 0 unit SC ACHS [facility] PRN Reason: Protocol Last Admin: 11/21/16 12:02 Dose: 1 unit Levothyroxine Sodium (Synthroid) 75 mcg PO DAILY@0630 [facility] Last Admin: 11/21/16 05:43 Dose: 75 mcg Losartan Potassium (Cozaar) 100 mg PO DAILY [facility] Last Admin: 11/21/16 09:02 Dose: 100 mg Potassium Chloride (Klor-Con 10) 10 meq PO BRK [facility] Stop: 11/22/16 23:59 Last Admin: 11/21/16 09:03 Dose: 10 meq Rosuvastatin Calcium (Crestor) 10 mg PO HS [facility] Last Admin: 11/20/16 21:55 Dose: 10 mg - Labs Labs: 11/19/16 07:00 11/21/16 07:06 - Constitutional Appears: Non-toxic, No Acute Distress - Head Exam Head Exam: ATRAUMATIC, NORMOCEPHALIC - Eye Exam Eye Exam: Normal appearance. absent: Nystagmus - ENT Exam ENT Exam: Mucous Membranes Moist - Neck Exam Neck Exam: Full ROM. absent: Tenderness - Respiratory Exam Respiratory Exam: Clear to Ausculation Bilateral, NORMAL BREATHING PATTERN - Cardiovascular Exam Cardiovascular Exam: REGULAR RHYTHM - GI/Abdominal Exam GI & Abdominal Exam: Soft, Normal Bowel Sounds. absent: Tenderness - Extremities Exam Extremities Exam: Full ROM. absent: Joint Swelling, Pedal Edema - Back Exam Back Exam: absent: tenderness - Neurological Exam Neurological Exam: Alert, Awake, Normal Gait, Oriented x3 - Psychiatric Exam Psychiatric exam: Normal Affect, Normal Mood - Skin Skin Exam: Intact, Normal Color Assessment and Plan - Assessment and Plan (Free Text) Assessment: Patient admitted with non Ketotic hyperglycemia- improving with current care Electrolyte imbalance corrected is feeding Hypertension , CRI stable discussed plan of subacute family and patient aware of conditon and plan
[2016-11-21] MEDS: Insulin Detemir 100 units/ml Vial (Levemir) SC SCH (22:43)
[2016-11-22] MEDS: Levothyroxine 75 MCG TAB PO SCH (06:16)
--- NOTE | 2016-11-22 07:08 | CP.PCM.PN ---
Subjective - Date & Time of Evaluation Date of Evaluation: 11/22/16 Time of Evaluation: 08:00 - Subjective Subjective: High FS noted electrolyte normalized no abnormal muscular movements aware of plan discussion with staff- possible transfer today Objective - Vital Signs/Intake and Output Vital Signs (last 24 hours): Temp Pulse Resp BP Pulse Ox 98.1 F 68 18 121/71 98 11/22/16 01:00 11/22/16 01:00 11/22/16 01:00 11/22/16 01:00 11/22/16 01:00 Intake and Output: 11/22/16 11/22/16 06:59 18:59 Intake Total 200 Balance 200 - Medications Medications: Current Medications Allopurinol (Zyloprim) 100 mg PO BID [facility] Last Admin: 11/21/16 17:47 Dose: 100 mg Amlodipine Besylate (Norvasc) 10 mg PO DAILY [facility] Last Admin: 11/21/16 09:15 Dose: 10 mg Aspirin (Ecotrin) 81 mg PO DAILY [facility] Last Admin: 11/21/16 09:09 Dose: 81 mg Carvedilol (Coreg) 12.5 mg PO BID [facility] Last Admin: 11/21/16 17:47 Dose: 12.5 mg Clonidine HCl (Catapres) 0.1 mg PO TID [facility] Last Admin: 11/21/16 17:48 Dose: Not Given Docusate Sodium (Colace) 100 mg PO BID [facility] Last Admin: 11/21/16 17:48 Dose: 100 mg Famotidine (Pepcid) 20 mg PO DAILY [facility] Last Admin: 11/21/16 09:02 Dose: 20 mg Glimepiride (Amaryl) 1 mg PO BID [facility] Last Admin: 11/21/16 17:47 Dose: 1 mg Heparin Sodium (Porcine) (Heparin) 5,000 units SC Q12 [facility] Last Admin: 11/21/16 22:39 Dose: 5,000 units Hydralazine HCl (Apresoline) 25 mg PO TID [facility] Last Admin: 11/21/16 17:47 Dose: 25 mg Insulin Detemir (Levemir) 16 unit SC HS [facility] Last Admin: 11/21/16 22:43 Dose: 16 unit Insulin Human Regular (Novolin R) [address] [facility] PRN Reason: Protocol Last Admin: 11/21/16 22:42 Dose: 2 unit Levothyroxine Sodium (Synthroid) 75 mcg PO DAILY@0630 [facility] Last Admin: 11/22/16 06:16 Dose: 75 mcg Losartan Potassium (Cozaar) 100 mg PO DAILY [facility] Last Admin: 11/21/16 09:02 Dose: 100 mg Potassium Chloride (Klor-Con 10) 10 meq PO BRK [facility] Stop: 11/22/16 23:59 Last Admin: 11/21/16 09:03 Dose: 10 meq Rosuvastatin Calcium (Crestor) 10 mg PO HS [facility] Last Admin: 11/21/16 22:49 Dose: 10 mg - Labs Labs: 11/19/16 07:00 11/21/16 07:06 - Constitutional Appears: Non-toxic, No Acute Distress - Head Exam Head Exam: ATRAUMATIC, NORMOCEPHALIC - Eye Exam Eye Exam: Normal appearance - ENT Exam ENT Exam: Mucous Membranes Moist - Neck Exam Neck Exam: Full ROM. absent: Tenderness - Respiratory Exam Respiratory Exam: Clear to Ausculation Bilateral, NORMAL BREATHING PATTERN - Cardiovascular Exam Cardiovascular Exam: REGULAR RHYTHM - GI/Abdominal Exam GI & Abdominal Exam: Soft, Normal Bowel Sounds. absent: Tenderness - Back Exam Back Exam: absent: rash noted, tenderness - Neurological Exam Neurological Exam: Alert, Awake, Normal Gait, Oriented x3 - Psychiatric Exam Psychiatric exam: Normal Affect, Normal Mood - Skin Skin Exam: Intact, Normal Color Assessment and Plan - Assessment and Plan (Free Text) Assessment: patient with NIDDM admitted for [facility] improved- with FS improved with on and off elevation- adjustment in insulin, patient is aware CRI-stable Hypertension stable Electrolyte abnormality corrected for subacute
[2016-11-22] MEDS: Potassium Chloride 10 mEq ER Tab PO SCH (08:00)
[2016-11-22] MEDS: (Novolin R) Insulin Human Regular 100 units/ml vial SC SCH ×3 (08:28→17:12)
[2016-11-22 13:34] VITALS: BP 123/71
--- NOTE | 2016-11-22 14:39 | VASCLAB ---
STUDY DESCRIPTION: HISTORY: r/o PAD PRIORS: None. TECHNIQUE: Pulse volume recording waveforms and segmental pressures of bilateral lower extremities at multiple levels were obtained. Ankle Brachial Indices (ABIs) were calculated. Report prepared by LEI Garza, RVT RIGHT LOWER EXTREMITY: * Brachial artery: Pressure - 127 mmHg. * High thigh: Pressure - 220 mmHg: Ratio - NC: PVR waveform - Pulsatile * Low thigh: Pressure - 181 mmHg: Ratio - 1.43 PVR waveform: Pulsatile * Calf: Pressure - 161 mmHg: Ratio - 1.27 PVR waveform: Pulsatile * Posterior tibial Artery: Pressure - 143 mmHg: Ratio - 1.13 PVR waveform: Pulsatile * Dorsalis pedis Artery: Pressure - 128 mmHg: Ratio - 1.01 PVR waveform: Pulsatile * Great toe: Pressure - mmHg: Ratio - PVR waveform: Ankle brachial index (GEETA): 1.13 LEFT LOWER EXTREMITY: * Brachial artery: Pressure - 120 mmHg. * High thigh: Pressure - 177 mmHg: Ratio - 1.39: PVR waveform - Pulsatile * Low thigh: Pressure - 171 mmHg: Ratio - 1.35 PVR waveform: Pulsatile * Calf: Pressure - 160 mmHg: Ratio - 1.26 PVR waveform: Pulsatile * Posterior tibial Artery: Pressure - 154 mmHg: Ratio - 1.21 PVR waveform: Pulsatile * Dorsalis pedis Artery: Pressure - 143 mmHg: Ratio - 1.13 PVR waveform: Pulsatile * Great toe: Pressure - mmHg: Ratio - PVR waveform: Ankle brachial index (GEETA): 1.21 OTHER FINDINGS: Right: Left: IMPRESSION: Right: There was no evidence of hemodynamically significant arterial insufficiency in the right lower extremity. Left: There was no evidence of hemodynamically significant arterial insufficiency in the left lower extremity.
[2016-11-22] MEDS ORDERED: Insulin Detemir 100 units/ml Vial (Levemir) SC SCH (15:45)
[2016-11-22 17:21] VITALS: PULSE 63; RESP 20; TEMP 98
--- NOTE | 2016-11-23 08:01 | CP.PCM.DIS ---
Provider - Provider Date of Admission: 11/18/16 23:39 Attending physician: Leonor Wei MD Time Spent in preparation of Discharge (in minutes): 30 Hospital Course - Lab Results Lab Results: Most Recent Lab Values WBC 7.1 K/uL (4.8-10.8) 11/19/16 07:00 RBC 4.41 Mil/uL (3.80-5.20) 11/19/16 07:00 Hgb 11.8 g/dL (11.0-16.0) 11/19/16 07:00 Hct 36.1 % (34.0-47.0) 11/19/16 07:00 MCV 81.8 fL (81.0-99.0) D 11/19/16 07:00 MCH 26.7 pg (27.0-31.0) L 11/19/16 07:00 MCHC 32.6 g/dL (33.0-37.0) L 11/19/16 07:00 RDW 14.3 % (11.5-14.5) 11/19/16 07:00 Plt Count 212 K/uL (130-400) 11/19/16 07:00 MPV 10.4 fL (7.2-11.7) 11/19/16 07:00 Neut % (Auto) 58.9 % (50.0-75.0) 11/19/16 07:00 Lymph % (Auto) 25.1 % (20.0-40.0) 11/19/16 07:00 [place] % (Auto) 9.5 % (0.0-10.0) 11/19/16 07:00 Eos % (Auto) 5.4 % (0.0-4.0) H 11/19/16 07:00 Baso % (Auto) 1.1 % (0.0-2.0) 11/19/16 07:00 Neut # 4.2 K/uL (1.8-7.0) 11/19/16 07:00 Lymph # 1.8 K/uL (1.0-4.3) 11/19/16 07:00 [place] # 0.7 K/uL (0.0-0.8) 11/19/16 07:00 Eos # 0.4 K/uL (0.0-0.7) 11/19/16 07:00 Baso # 0.1 K/uL (0.0-0.2) 11/19/16 07:00 pO2 34 mm/Hg (30-55) 11/18/16 22:04 VBG pH 7.33 (7.32-7.43) 11/18/16 22:04 VBG pCO2 49 mmHg (40-60) 11/18/16 22:04 VBG HCO3 23.4 mmol/L 11/18/16 22:04 VBG Total CO2 27.3 mmol/L (22-28) 11/18/16 22:04 VBG O2 Sat (Calc) 70.8 % (40-65) H 11/18/16 22:04 VBG Base Excess -0.7 mmol/L (0.0-2.0) L 11/18/16 22:04 VBG Potassium 4.2 mmol/L (3.6-5.2) 11/18/16 22:04 Sodium 127.0 mmol/l (132-148) L 11/18/16 22:04 Chloride 90.0 mmol/L (98-107) L 11/18/16 22:04 Glucose > 750 mg/dl (65-105) H* 11/18/16 22:04 Lactate 2.6 mmol/L (0.7-2.1) H 11/18/16 22:04 Crit Value Called To [place] [facility] 11/18/16 22:04 Crit Value Called By Piero 11/18/16 22:04 Crit Value Read Back Y 11/18/16 22:04 Blood Gas Notified Time 220711/18/16 22:04 Sodium 132 mmol/L (132-148) 11/21/16 07:06 Potassium 4.2 mmol/L (3.6-5.2) 11/21/16 07:06 Chloride 98 mmol/L (98-107) 11/21/16 07:06 Carbon Dioxide 25 mmol/L (22-30) 11/21/16 07:06 Anion Gap 13 (10-20) 11/21/16 07:06 BUN 25 mg/dL (7-17) H 11/21/16 07:06 Creatinine 1.6 mg/dL (0.7-1.2) H 11/21/16 07:06 Est GFR ( Amer) 38 11/21/16 07:06 Est GFR (Non-Af Amer) 32 11/21/16 07:06 POC Glucose (mg/dL) 352 mg/dL (65-110) H 11/22/16 16:35 Random Glucose 165 mg/dL (65-105) H 11/21/16 07:06 Hemoglobin A1c 14.5 % (4.2-6.5) H D 11/19/16 07:00 Calcium 8.9 mg/dl (8.6-10.4) 11/21/16 07:06 Ionized Calcium 4.7 mg/dL (4.80-5.60) L 11/19/16 16:51 Phosphorus 3.0 mg/dL (2.5-4.5) 11/19/16 09:02 Magnesium 2.1 mg/dL (1.6-2.3) 11/19/16 09:02 Total Bilirubin 0.9 mg/dL (0.2-1.3) 11/21/16 07:06 Direct Bilirubin 0.4 mg/dL (0.0-0.4) 11/20/16 07:44 AST 26 U/L (14-36) 11/21/16 07:06 ALT 36 U/L (9-52) 11/21/16 07:06 Alkaline Phosphatase 116 U/L (38-126) 11/21/16 07:06 Ammonia 11 umol/L (9-33) 11/19/16 19:56 Total Creatine Kinase 114 U/L (30-135) 11/19/16 16:51 CK-MB (Mass) 1.56 ng/mL (0.0-3.38) 11/19/16 16:51 Troponin I, Quant 0.0160 ng/mL (0.00-0.120) 11/19/16 16:51 Total Protein 6.8 g/dL (6.3-8.3) 11/21/16 07:06 Albumin 3.5 g/dL (3.5-5.0) 11/21/16 07:06 Globulin 3.3 gm/dL (2.2-3.9) 11/21/16 07:06 Albumin/Globulin Ratio 1.1 (1.0-2.1) 11/21/16 07:06 Ceruloplasmin 30 mg/dL (18-53) 11/20/16 07:44 Lipase 153 U/L (23-300) 11/18/16 21:54 Free T4 1.20 ng/dL (0.78-2.19) 11/19/16 07:00 Total T3 0.702 nmol/L (1.49-2.60) L 11/19/16 07:00 TSH 3rd Generation 1.02 mIU/L (0.46-4.68) 11/19/16 07:00 Prolactin 14.1 ng/mL (3.0-18.9) 11/19/16 09:02 Venous Blood Potassium 4.2 mmol/L (3.6-5.2) 11/18/16 22:04 Urine Color Straw (YELLOW) 11/18/16 22:27 Urine Clarity Clear (Clear) 11/18/16 22:27 Urine pH 6.0 (5.0-8.0) 11/18/16 22:27 Ur Specific Goode 1.022 (1.003-1.030) 11/18/16 22:27 Urine Protein Negative mg/dL (NEGATIVE) 11/18/16 22:27 Urine Glucose (UA) 3+ mg/dL (Normal) H 11/18/16 22: Urine Ketones Negative mg/dL (NEGATIVE) 11/18/16 22: Urine Blood Trace (NEGATIVE) H 11/18/16 22:27 Urine Nitrate Negative (NEGATIVE) 11/18/16 22: Urine Bilirubin Negative (NEGATIVE) 11/18/16 22: Urine Urobilinogen Normal mg/dL (0.2-1.0) 11/18/16 22:27 Ur Leukocyte Esterase Neg Rogelio/uL (Negative) 11/18/16 22:27 Urine WBC (Auto) 1 /hpf (0-5) 11/18/16 22:27 Urine RBC (Auto) 2 /hpf (0-3) 11/18/16 22:27 Ur Squamous Epith Cells 1 /hpf (0-5) 11/18/16 22:27 Urine Bacteria Rare (<OCC) 11/18/16 22:27 Serum Ketones Negative (NEGATIVE) 11/18/16 21:54 - Hospital Course Hospital Course: admitted due to abnormal muscular movements noted in the shoulder and upper arms , with no fever no cough no pain ni GI,but found to have non ketotic hyperglycemia, plaed on IVF insulin PO DM, and improved , stable with debility lower OA and transferrred to subacute Discharge Exam - Head Exam Head Exam: ATRAUMATIC, NORMOCEPHALIC - Eye Exam Eye Exam: Normal appearance. absent: Nystagmus - ENT Exam ENT Exam: Mucous Membranes Moist - Respiratory Exam Respiratory Exam: Clear to PA & Lateral, NORMAL BREATHING PATTERN - Cardiovascular Exam Cardiovascular Exam: REGULAR RHYTHM - GI/Abdominal Exam GI & Abdominal Exam: Normal Bowel Sounds, Soft. absent: Tenderness - Extremities Exam Extremities exam: normal inspection - Neurological Exam Neurological exam: Alert, Normal Gait, Oriented x3 - Psychiatric Exam Psychiatric exam: Normal Affect - Skin Skin Exam: Intact, Normal Color Discharge Plan - Follow Up Plan Condition: FAIR Disposition: REHAB FACILITY/REHAB UNIT Instructions: Insulin Human Regular (By injection), Diabetes Mellitus Type 2 in Adults (DC), Meal Planning with the Plate Method (DC), Diabetic Retinopathy ( GEN), Diabetic Neuropathy (GEN) Referrals: Leonor Wei MD [Medical Doctor] -
== END 2016-11-22 17:30 | DRG 638 ==
LOC: C.ER 21:37 → C.9E 23:39 → C.5S 11-19 01:38 → C.3T 11-21 09:55
PROVIDERS: ADMIT Internal Medicine; ATTEND Internal Medicine
DX: E11.65 Type 2 diabetes mellitus with hyperglycemia (principal); E87.1 Hypo-osmolality and hyponatremia; G62.9 Polyneuropathy, unspecified; E11.22 Type 2 diabetes mellitus with diabetic chronic kidney disease; E86.0 Dehydration; I12.9 Hypertensive chronic kidney disease with stage 1 through stage 4 chronic kidney disease, or unspecified chronic kidney disease; E78.5 Hyperlipidemia, unspecified; M10.9 Gout, unspecified; N18.9 Chronic kidney disease, unspecified; Z79.84 Long term (current) use of oral hypoglycemic drugs; Z87.891 Personal history of nicotine dependence; I25.10 Atherosclerotic heart disease of native coronary artery without angina pectoris

== ENCOUNTER 2018-01-06 17:12 | Emergency (ER) | payer MEDICARE ==
[2018-01-06 17:13] VITALS: BMI 26.5
--- NOTE | 2018-01-06 18:43 | C.PDOC ---
History Of Present Illness 77 y/o female with PMHx of DM, HTN, and hypercholesterolemia, presents to the ED for evaluation of elevated blood pressure. Patient states she checked her pressure at home this afternoon and found it to be 225/139. She admits that she ran out of her Hydralazine 25 mg TID, 1 week ago. Patient reports she has been compliant with her other pressure medications, Losartan and Clonidine. She attempted to see her PMD yesterday but the office was closed. Patient was able to get a few days supply of Hydralazine from the pharmacy, and took two of the three doses today. She otherwise denies any headache, chest pain, dizziness, nausea, vomiting, SOB, or blurred/double vision. PMD- Dr. Wei Time Seen by Provider: 01/06/18 18:43 Chief Complaint (Nursing): High Blood Pressure History Per: Patient History/Exam Limitations: no limitations Onset/Duration Of Symptoms: Days Quality Of Symptoms: Asymptomatic Exacerbating Factor(s): Pos: Recently Missed Doses Of Medication Past Medical History Reviewed: Historical Data, Nursing Documentation, Vital Signs Vital Signs: Last Vital Signs Temp 97.8 F 01/06/18 17:29 Pulse 67 01/06/18 17:29 Resp 18 01/06/18 17:29 BP 194/104 H 01/06/18 17:29 Pulse Ox 98 01/06/18 17:29 - Medical History PMH: Arthritis, Diabetes, HTN, Hypercholesterolemia, Hypothyroidism Denies: Atrial Fibrillation, Cardia Arrhythmia, CHF, Chronic Kidney Disease Other Surgeries: Thyroidectomy Family History: States: [place], CAD - Social History Hx Tobacco Use: No Hx Alcohol Use: No Hx Substance Use: No - Immunization History Hx Tetanus Toxoid Vaccination: No Hx Influenza Vaccination: No Hx Pneumococcal Vaccination: No Review Of Systems Constitutional: Negative for: Fever, Chills, Sweats Eyes: Negative for: Vision Change Cardiovascular: Negative for: Chest Pain, Palpitations, Light Headedness Respiratory: Negative for: Shortness of Breath, SOB with Excertion Gastrointestinal: Negative for: Nausea, Vomiting Neurological: Negative for: Headache, Dizziness Physical Exam - Physical Exam Appears: Non-toxic, No Acute Distress Skin: Warm, Dry Head: Normacephalic Eye(s): bilateral: Normal Inspection, PERRL, EOMI Oral Mucosa: Moist Neck: Trachea Midline, Supple, Other (No meningeal signs- negative kernig's and brudzinskis) Chest: Symmetrical Cardiovascular: Rhythm Regular, Other (No rub) Respiratory: No Rales, No Rhonchi, No Wheezing Gastrointestinal/Abdominal: Soft, No Tenderness, No Distention Extremity: Bilateral: Normal Color And Temperature Pulses: Left Dorsalis Pedis: Normal, Right Dorsalis Pedis: Normal Neurological/Psych: Oriented x3, Normal Speech ED Course And Treatment O2 Sat by Pulse Oximetry: 98 (RA) Pulse Ox Interpretation: Normal Medical Decision Making Medical Decision Makin yr old F p/w asymptomatic HTN. No other complaints. Pending BP decrease and re-eval Initial Plan: --Hydralazine 25 mg PO --Repeat vitals 2130 HTN improved pt remains w/ out complaints stable gait w/ normal neuro exam clear for d/c home Disposition - Disposition Referrals: [facility] [Outside] [facility] [Outside] Leonor Wei MD [Medical Doctor] - Disposition: HOME/ ROUTINE Disposition Time: 21:30 Condition: GOOD Additional Instructions: WANDY BOYD, thank you for letting us take care of you today. Your provider was Ced Vargas and you were treated for PRESSURE HIGH-SENT BY . The emergency medical care you received today was directed at your acute symptoms. If you were prescribed any medication, please fill it and take as directed. It may take several days for your symptoms to resolve. Return to the Emergency Department if your symptoms worsen, do not improve, or if you have any other problems. Please contact your doctor or call one of the physicians/clinics you have been referred to that are listed on the Patient Visit Information form that is included in your discharge packet. Bring any paperwork you were given at discharge with you along with any medications you are taking to your follow up visit. Our treatment cannot replace ongoing medical care by a primary care provider outside of the emergency department. Thank you for allowing the [facility] team to be part of your care today. If you had an X-Ray or CT scan: A Radiologist will review the ED reading if any change in treatment is needed we will contact you. If you had a blood, urine, or wound culture: It will take several days for the results, if any change in treatment is needed we will contact you. If you had an STI test: It will take 48 hours for the results. Please call after 1 week if you have not heard back. Instructions: High Blood Pressure in Adults Forms: [facility] (Belarusian) - Clinical Impression Clinical Impression: Asymptomatic hypertensive urgency - Scribe Statement The provider has reviewed the documentation as recorded by the Scribe (Joselin Paiz) Provider Attestation: All medical record entries made by the Scribe were at my direction and personally dictated by me. I have reviewed the chart and agree that the record accurately reflects my personal performance of the history, physical exam, medical decision making, and the department course for this patient. I have also personally directed, reviewed, and agree with the discharge instructions and disposition.
[2018-01-06 21:45] VITALS: BP 171/90; PULSE 66; RESP 18; TEMP 98.1
[2018-01-06 21:47] VITALS: O2SAT 98
== END 2018-01-06 21:45 | disposition home or self-care (01) ==
LOC: C.ER 17:12
DX: I16.0 Hypertensive urgency (principal)